=== PATIENT | male | born 1935 | race Caucasian/White ===

== ENCOUNTER 2018-07-08 21:48 | Inpatient (IN) | payer OTHER ==
[2018-07-08 22:22] VITALS: BMI 31.9
[2018-07-08] MEDS ORDERED: ACETAMINOPHEN 1000 MG/100 ML VIAL (NON FORMULARY) IVPB ONE (22:46)
--- NOTE | 2018-07-08 23:02 | PDOC ---
History of Present Illness - General Chief Complaint: Altered Mental Status Stated Complaint: Altered Mental Status Time Seen by Provider: 07/08/18 22:34 History Source: Group Home Records Exam Limitations: Clinical Condition - History of Present Illness Initial Comments: 07/08/18 23:02 The patient is an 83M with a PMH of HTN, HLD, T2DM, dementia, anemia, a-fib (on xarelto and 81mg asa) who presents to the ER from a [facility] for fever and AMS. Per [facility] records, the patient developed a fever earlier today and came more altered than normal. The patient cannot provide any history. Past History - Past Medical History Allergies/Adverse Reactions: Allergies Allergy/AdvReac Type Severity Reaction Status Date / Time No Known Allergies Allergy Verified 07/09/18 01:41 - Suicide/Smoking/Psychosocial Hx Smoking History: Unknown if ever smoked Review of Systems - Review of Systems Able to Perform ROS?: No (demented) *Physical Exam - Vital Signs Last Vital Signs Temp Pulse Resp BP Pulse Ox 101.2 F H 113 H 19 190/112 H 100 07/08/18 21:48 07/08/18 21:48 07/08/18 21:48 07/08/18 21:48 07/08/18 21:48 - Physical Exam Comments: 07/09/18 00:24 GENERAL: Well developed, well nourished. Awake and alert. No acute distress. HEENT: Normocephalic, atraumatic. Hearing grossly normal. Moist mucous membranes. PERRLA, EOMI. No conjunctival pallor. NECK: Supple. Full ROM. No JVD. CARDIOVASCULAR: Regular rate and rhythm. No murmurs, rubs, or gallops. PULMONARY: No evidence of respiratory distress. Lungs clear to auscultation bilaterally. No wheezing, rales or rhonchi. ABDOMINAL: Soft. Non-tender. Non-distended. No rebound or guarding. GENITOURINARY: No CVA tenderness bilaterally. MUSCULOSKELETAL: Normal range of motion at all joints. No bony deformities or tenderness. EXTREMITIES: No cyanosis. No clubbing. No edema. No calf tenderness or swelling. SKIN: Warm and dry. Normal capillary refill. No rashes. No jaundice. NEUROLOGICAL: Alert, awake, appropriate. Cranial nerves 2-12 grossly intact. Normal speech. PSYCHIATRIC: Cooperative. Good eye contact. Appropriate mood and affect. Moderate Sedation - Procedure Monitoring Vital Signs: Procedure Monitoring Vital Signs Temperature 101.2 F H 07/08/18 21:48 Pulse Rate 113 H 07/08/18 21:48 Respiratory Rate 19 07/08/18 21:48 Blood Pressure 190/112 H 07/08/18 21:48 O2 Sat by Pulse Oximetry (%) 100 07/08/18 21:48 Heart Score/ECG Review #1 General ECG Interpretation: Sinus Rhythm, Normal Rate, Normal Intervals, No acute ischemic changes Compared to previous ECG there are: Previous ECG unavail 07/09/18 00:25 Sinus tach vent rate 110 SD 124 QRS 102 QTc 433 No STD or MIGUEL No signs of acute ischemia ED Treatment Course - LABORATORY CBC & Chemistry Diagram: 07/08/18 23:00 07/08/18 23:00 - RADIOLOGY Radiology Studies Ordered: Category Date Time Status HEAD CT WITHOUT CONTRAST [CT] Stat CT Scan 07/08/18 22:35 Ordered CHEST X-RAY PORTABLE* [RAD] Stat Radiology 07/08/18 22:34 Ordered Medical Decision Making - Medical Decision Making 07/08/18 22:58 The patient is an 83M with MMP who presents to the ER with paperwork indicated that he was altered and had a fever. Pt d/w [facility] facility, [facility], who states that the pt had elevated BP with elevated temp (103). He was also tachy 117- 122. He also was altered. Baseline is demented and confused but today, he was barely responsive and had increase in BP. 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 07/09/18 01:06 CBC shows WBC of 14.8. Lactic acid negative. CMP negative. Trop negative. CXR shows possible infiltrate in L lower lobe with widened mediastinum. Pt straight cathed for urine. Will start broad spectrum abx. 07/09/18 02:11 UA negative. Son in law at bedside. Microblogged for admission. 07/09/18 03:05 I have endorsed the patient to Dr. Munoz for admission. *DC/Admit/Observation/Transfer Diagnosis at time of Disposition: Sepsis Qualifiers: Sepsis type: sepsis due to unspecified organism Qualified Code(s): A41.9 - Sepsis, unspecified organism - Discharge Dispostion Condition at time of disposition: Guarded Decision to Admit order: Yes - Referrals Referrals: Stefani Dunne MD [Primary Care Provider] - - Patient Instructions - Post Discharge Activity
[2018-07-08 23:11] LABS: BASO % 0.8 % (0-2.0); EOS % 0.1 % (0-4.5); HEMATOCRIT 43.4 % (35.4-49); LYMPH % 5.3 % (8-40); MCH 31.9 pg (25.7-33.7); MCHC 34.5 g/dl (32.0-35.9); MEAN CELL VOLUME 92.3 fl (80-96); MEAN PLT VOLUME 8.8 fl (7.5-11.1); MONO % 11.6 % (3.8-10.2); NEUT % 82.2 % (42.8-82.8); PLATELET COUNT 250 K/MM3 (134-434); RBC 4.71 M/mm3 (4.00-5.60); RDW 13.5 % (11.9-15.9); WHITE BLOOD COUNT 14.8 K/mm3 (4.0-10.0)
--- NOTE | 2018-07-08 23:15 | PDOC ---
Attending Attestation - HPI HPI: This patient is an 83 year old male with PMHx of Afib on Xarelto, dementia, HTN , DM, who was BIBA from long-term facility, for increased altered mental status, fever, and sore throat. Of note, patient is a poor historian therefore it is difficult to obtain clear history. 07/08/18 23:52 <Mireille Jensen - Last Filed: 07/08/18 23:52> - Resident Resident Name: GilmerAllen carballo - ED Attending Attestation I have performed the following: I have examined & evaluated the patient, The case was reviewed & discussed with the resident, I agree w/resident's findings & plan, Exceptions are as noted - Physicial Exam PE: GENERAL: Awake, alert, oriented to person, in no acute distress HEAD: No signs of trauma EYES: PERRLA, EOMI, sclera anicteric, conjunctiva clear ENT: Auricles normal inspection, hearing grossly normal, nares patent, oropharynx clear without exudates. Dry mucosa NECK: Normal ROM, supple, no lymphadenopathy, JVD, or masses LUNGS: Breath sounds equal, clear to auscultation bilaterally. No wheezes, and no crackles HEART: Regular rate and rhythm, normal S1 and S2, no murmurs, rubs or gallops ABDOMEN: Soft, nontender, normoactive bowel sounds. No guarding, no rebound. No masses EXTREMITIES: Normal range of motion, no edema. No clubbing or cyanosis. No cords, erythema, or tenderness NEUROLOGICAL: Cranial nerves II through XII grossly intact. Normal speech, normal gait. Motor and sensation intact SKIN: Warm, Dry, normal turgor, no rashes. +Healing lesion to the L forearm, no erythema, no open sores. - Medical Decision Making Lengthy discussion with son-in-law at bedside. Pt recently moved to the area from [place] with his , and she was placed into a dementia home. Patient has declined significantly since his arrival. He has been in a rehab facility, but he needs long-term care, as he is unable to care for himself, and family is not able to manage on their own (recently lost multiple family members). He now presents with fever. Will do a sepsis workup and admit. Son-in-law provided a copy of all of his records from recent admission at [facility]. <Eugenie Borja - Last Filed: 07/10/18 01:25> Attestations - Attestations 07/08/18 23:52 Documentation prepared by Mireille Jensen, acting as hospital medical assistant for Eugenie Borja MD. <Mireille Jensen - Last Filed: 07/08/18 23:52>
[2018-07-08 23:23] LABS: INR 1.71 (0.83-1.09); PROTHROMBIN TIME (PATIENT) 20.3 SEC (9.7-13.0)
[2018-07-08 23:39] LABS: ALBUMIN 3.6 g/dl (3.4-5.0); ALK PHOS 97 U/L (45-117); ANION GAP 8 MMOL/L (8-16); BILIRUBIN,TOTAL 0.5 mg/dL (0.2-1); BLOOD UREA NITROGEN 27 mg/dL (7-18); CALCIUM 8.8 mg/dL (8.5-10.1); CHLORIDE 106 mmol/L (98-107); CO2 22 mmol/L (21-32); CREATININE 1.4 mg/dL (0.55-1.3); GLUCOSE,RANDOM 131 mg/dL (74-106); POTASSIUM 4.6 mmol/L (3.5-5.1); SGOT/AST 20 U/L (15-37); SGPT/ALT 15 U/L (13-61); SODIUM 136 mmol/L (136-145); TOT PROT 6.8 g/dl (6.4-8.2)
[2018-07-09 00:21] LABS: VENOUS PC02 34.9 mmHg (38-52); VENOUS PH 7.38 (7.32-7.42); VENOUS PO2 51.5 mmHg (28-48)
[2018-07-09] MEDS ORDERED: VANCOMYCIN 1,000 MG in DEXTROSE 5%-WATER - 250 ML IVPB ONE (01:07)
[2018-07-09] MEDS ORDERED: PIPERACILLIN/TAZOB 4.5 GM 4.5 GM in DEXTROSE 5%-WATER 100 ML IVPB ONE (01:07)
[2018-07-09 01:20] LABS: URINE APPEARANCE SLCLOUDY; URINE BILIRUBIN NEGATIVE (<2.0 mg/dL); URINE COLOR YELLOW; URINE GLUCOSE (UA) NEGATIVE (NEGATIVE); URINE KETONE 1+ (NEGATIVE); URINE LEUK ESTERASE NEGATIVE (NEGATIVE); URINE NITRITE NEGATIVE (NEGATIVE); URINE PROTEIN 2+ (NEGATIVE); URINE UROBILINOGEN NEGATIVE mg/dL (0.2-1.0)
[2018-07-09 01:32] LABS: EPI CELLS RARE /HPF (FEW); URINE MUCUS RARE
[2018-07-09] MEDS ORDERED: PIPERACILLIN/TAZOB 4.5 GM 4.5 GM/100 ML BAG IVPB ONE (01:44)
[2018-07-09] MEDS ORDERED: VANCOMYCIN 1 GRAM (PRE-DOCKED) 1,000 MG/250 ML BAG IVPB ONE ×2 (01:44→01:46)
[2018-07-09] MEDS ORDERED: ACETAMINOPHEN 1000 MG/100 ML VIAL (NON FORMULARY) IVPB ONE (04:33)
--- NOTE | 2018-07-09 04:34 | HP ---
CHIEF COMPLAINT: Per [facility]---> Fever+ AMS PCP: Stefani Dunne MD HISTORY OF PRESENT ILLNESS: Pt is an 83 y/o M from [facility] with a significant past medical history of DM, HLD, Atrial fibrillation, HTN, and Pulmonary Embolism (1 year ago). Pt was recently admitted to [facility] last month 2/2 mechanical fall. Per records from that admission, daughter was unable to reach pt via phone therefore she visited his home and found him on the ground unable to help himself up. Pt was reportedly taken off his Xarelto while he was in rehab in [place] late last year as he was deemed a high fall risk due to his gait disturbance and frequent falls. During [facility] admission, pt underwent ECHO as well as MRI Brain (Please see medical records in pt's physical chart from [facility]). Pt was sent to [facility] due to fever and altered mental status. No reported cough or shortness of breath. ER course was notable for: (1) Vancomycin and Merrem (2) CT Head--->> No acute intracranial hemorrhage or acute infarction. Chronic microvascular ischemic changes noted. Chronic lacunar infarctions. (3)WBC of 14.8 Recent Travel: PAST MEDICAL HISTORY: Per HPI PAST SURGICAL HISTORY: Social History: Smoking: Alcohol: Drugs: Family History: Allergies No Known Allergies Allergy (Verified 07/09/18 01:41) HOME MEDICATIONS: REVIEW OF SYSTEMS CONSTITUTIONAL: UNABLE TO OBTAIN DUE TO PT'S MENTAL STATUS. PHYSICAL EXAMINATION Vital Signs - 24 hr 07/08/18 21:48 Temperature 101.2 F H Pulse Rate 113 H Respiratory 19 Rate Blood Pressure 190/112 H O2 Sat by Pulse 100 Oximetry (%) GENERAL: Somnoloent, Not oriented to place or time HEAD: Atraumatic/Normocephalic EYES: EOMI Sclera Clear EARS, NOSE, THROAT: Dry mucous membranes NECK: No JVD Appreciated. LUNGS: Decreased breath sounds at bases . HEART: RRR nl S1 S2 ABDOMEN: Surgical scar mid abdomen. NDNT NO HSM No guarding or rigidity. . UPPER EXTREMITIES: Bandage Left arm, erythema. LOWER EXTREMITIES: Onychomycosis b/l. No cracks or ulcers on dorsem or plantar aspects of feet b/l. NEUROLOGICAL: dementia SKIN: No skin ulcers appreciated Laboratory Results - last 24 hr 0207/08/18 07/08/18 22:54 23:00 23:00 WBC 14.8 H RBC 4.71 Hgb 15.0 Hct 43.4 MCV 92.3 MCH 31.9 MCHC 34.5 RDW 13.5 Plt Count 250 MPV 8.8 Absolute Neuts (auto) 12.1 H Neutrophils % 82.2 Lymphocytes % 5.3 L Monocytes % 11.6 H Eosinophils % 0.1 Basophils % 0.8 Nucleated RBC % 0 PT with INR 20.30 H INR 1.71 H PTT (Actin FS) 27.0 VBG pH POC VBG pCO2 POC VBG pO2 Mixed VBG HCO3 Sodium Potassium Chloride Carbon Dioxide Anion Gap BUN Creatinine Creat Clearance w eGFR POC Glucometer 131 Random Glucose Lactic Acid Calcium Total Bilirubin AST ALT Alkaline Phosphatase Troponin I Total Protein Albumin Urine Color Urine Appearance Urine pH Ur Specific [place] Urine Protein Urine Glucose (UA) Urine Ketones Urine Blood Urine Nitrite Urine Bilirubin Urine Urobilinogen Ur Leukocyte Esterase Urine WBC (Auto) Urine RBC (Auto) Ur Epithelial Cells Urine Mucus Influenza A (Rapid) Influenza B (Rapid) 07/08/18 07/08/18 07/08/18 23:00 23:00 23:00 WBC RBC Hgb Hct MCV MCH MCHC RDW Plt Count MPV Absolute Neuts (auto) Neutrophils % Lymphocytes % Monocytes % Eosinophils % Basophils % Nucleated RBC % PT with INR INR PTT (Actin FS) VBG pH POC VBG pCO2 POC VBG pO2 Mixed VBG HCO3 Sodium 136 Potassium 4.6 Chloride 106 Carbon Dioxide 22 Anion Gap 8 BUN 27 H Creatinine 1.4 H Creat Clearance w eGFR 48.52 POC Glucometer Random Glucose 131 H Lactic Acid 1.0 Calcium 8.8 Total Bilirubin 0.5 AST 20 ALT 15 Alkaline Phosphatase 97 Troponin I < 0.02 Total Protein 6.8 Albumin 3.6 Urine Color Urine Appearance Urine pH Ur Specific [place] Urine Protein Urine Glucose (UA) Urine Ketones Urine Blood Urine Nitrite Urine Bilirubin Urine Urobilinogen Ur Leukocyte Esterase Urine WBC (Auto) Urine RBC (Auto) Ur Epithelial Cells Urine Mucus Influenza A (Rapid) Influenza B (Rapid) 07/08/18 07/09/18 07/09/18 23:00 00:09 01:00 WBC RBC Hgb Hct MCV MCH MCHC RDW Plt Count MPV Absolute Neuts (auto) Neutrophils % Lymphocytes % Monocytes % Eosinophils % Basophils % Nucleated RBC % PT with INR INR PTT (Actin FS) VBG pH 7.38 POC VBG pCO2 34.9 L POC VBG pO2 51.5 H Mixed VBG HCO3 20.3 Sodium Potassium Chloride Carbon Dioxide Anion Gap BUN Creatinine Creat Clearance w eGFR POC Glucometer Random Glucose Lactic Acid Calcium Total Bilirubin AST ALT Alkaline Phosphatase Troponin I Total Protein Albumin Urine Color Yellow Urine Appearance Slcloudy Urine pH 5.0 Ur Specific [place] 1.018 Urine Protein 2+ H Urine Glucose (UA) Negative Urine Ketones 1+ H Urine Blood 3+ H Urine Nitrite Negative Urine Bilirubin Negative Urine Urobilinogen Negative Ur Leukocyte Esterase Negative Urine WBC (Auto) None Urine RBC (Auto) 664 Ur Epithelial Cells Rare Urine Mucus Rare Influenza A (Rapid) Negative Influenza B (Rapid) Negative ASSESSMENT/PLAN: Pt is an 83 y/o M from [facility] with a significant past medical history of DM, Atrial fibrillation, HTN, and Pulmonary Embolism (1 year ago) who presents to [facility] from [facility] due to altered mental status and fever. # Fever 2/2 Pneumonia? WBC 14.8. Repeat CBC in am Procalcitonin to asses for chest infection/respiratory disease as is an acute phase reactant that will aid in determining presence of disease - Chest CT w/o Contrast to assess for possible infiltrate. Chest XRAY poor quality -ESR -500 mg PO Azithro to cover Atypicals -Resume Vanc and Merrem -Nasal swab for viruses -Urine legionella/Strep -Sputum Cultures -Blood/Urine Cultures #DM Will start ISS ACHS Will not hold Metformin #Atrial Fibrillation Xarelto on hold. Day team to reach out to [facility] and confirm whether or not [facility]. Toprol XL 25 MG PO Daily Aspirin 81 Daily #HTN Cozaar 50 MG Daily # HLD Lipitor 20 MG Daily # Anemia Ferrous Sulfate 325 mg tab daily #FEN NS@75 cc Monitor Electrolytes NPO Dispo: Full Code Visit type - Emergency Visit Emergency Visit: Yes ED Registration Date: 07/09/18 Care time: The patient presented to the Emergency Department on the above date and was hospitalized for further evaluation of their emergent condition. - New Patient This patient is new to me today: Yes Date on this admission: 07/09/18 - Critical Care Critical Care patient: No
--- NOTE | 2018-07-09 06:28 | PN ---
Teaching Attending Note Name of Resident: Dom Munoz ATTENDING PHYSICIAN STATEMENT I saw and evaluated the patient. Chart, data, imaging reviewed. I reviewed the resident's note and discussed the case with the resident. I agree with the resident's findings and plan as documented. SUBJECTIVE: 83 y/o M from [facility] with a significant past medical history of DM, Atrial fibrillation, HTN, and Pulmonary Embolism (1 year ago) brought in to hospital for fever with Tmax of 103F in ER, and altered mental status for about one day. Patient provides no history so must rely on EMR. No reported cough or shortness of breath. Negative flu swab in ER. Patient reviewed vancomycin and zosyn in ER empirically. OBJECTIVE: Last Vital Signs Temp Pulse Resp BP Pulse Ox 103.0 F H 88 19 157/91 97 07/09/18 03:57 07/09/18 03:57 07/09/18 03:57 07/09/18 03:57 07/09/18 05:11 general- elderly, frail heent- atraumatic, perrla cv s1+, s2+ chest - cta anteriorly abdomen- soft, nt skin - intact Abnormal Lab Results 07/08/18 07/08/18 07/08/18 23:00 23:00 23:00 WBC 14.8 H Absolute Neuts (auto) 12.1 H Lymphocytes % 5.3 L Monocytes % 11.6 H PT with INR 20.30 H INR 1.71 H POC VBG pCO2 POC VBG pO2 BUN 27 H Creatinine 1.4 H Random Glucose 131 H Urine Protein Urine Ketones Urine Blood 07/09/18 07/09/18 00:09 01:00 WBC Absolute Neuts (auto) Lymphocytes % Monocytes % PT with INR INR POC VBG pCO2 34.9 L POC VBG pO2 51.5 H BUN Creatinine Random Glucose Urine Protein 2+ H Urine Ketones 1+ H Urine Blood 3+ H CXR - poor quality, rotated, poor inspiration head ct negative for acute insults ekg reviewed ASSESSMENT AND PLAN: #83yo man with SIRS, leukocytosis, likely sepsis however uncertain source. Skin appears to be intact. Possibly pneumonia? Unclear from CXR. -admit to med/surg -ID consult -esr -procalcitonin -zosyn -vancomycin -azithromycin 500mg IV -IV fluid hydration -chest CT to evaluate for infiltrate -blood cultures x2 -urine legionella ag -respiratory multiplex PCR -tylenol prn for fever -heparin sc for dvt ppx #SHELBI vs ckd -iv fluid hydration -avoid nephrotoxins
[2018-07-09] MEDS ORDERED: AZITHROMYCIN IVPB 500 MG in DEXTROSE 5%-WATER - 250 ML IVPB ONE (06:50)
[2018-07-09 08:32] LABS: BASO % 0.7 % (0-2.0); EOS % 0.2 % (0-4.5); HEMATOCRIT 37.8 % (35.4-49); HEMOGLOBIN 13.1 GM/dL (11.7-16.9); LYMPH % 5.6 % (8-40); MCH 31.3 pg (25.7-33.7); MCHC 34.6 g/dl (32.0-35.9); MEAN CELL VOLUME 90.7 fl (80-96); MEAN PLT VOLUME 8.4 fl (7.5-11.1); MONO % 12.4 % (3.8-10.2); NEUT % 81.1 % (42.8-82.8); PLATELET COUNT 235 K/MM3 (134-434); RBC 4.17 M/mm3 (4.00-5.60); RDW 13.7 % (11.9-15.9); WHITE BLOOD COUNT 13.3 K/mm3 (4.0-10.0)
[2018-07-09 08:38] LABS: INR 1.4 (0.83-1.09); PROTHROMBIN TIME (PATIENT) 16.6 SEC (9.7-13.0)
[2018-07-09 08:41] LABS: ACTIVATED PTT 29.6 SECONDS (25.2-36.5)
[2018-07-09 09:00] LABS: ALBUMIN 3.4 g/dl (3.4-5.0); ALK PHOS 90 U/L (45-117); ANION GAP 8 MMOL/L (8-16); BILIRUBIN,TOTAL 0.6 mg/dL (0.2-1); BLOOD UREA NITROGEN 25 mg/dL (7-18); CALCIUM 8.8 mg/dL (8.5-10.1); CHLORIDE 106 mmol/L (98-107); CO2 20 mmol/L (21-32); CREATININE 1.4 mg/dL (0.55-1.3); GLUCOSE,RANDOM 129 mg/dL (74-106); PHOSPHOROUS 4.2 mg/dL (2.5-4.9); POTASSIUM 4.2 mmol/L (3.5-5.1); SGOT/AST 11 U/L (15-37); SGPT/ALT 14 U/L (13-61); SODIUM 133 mmol/L (136-145); TOT PROT 6.2 g/dl (6.4-8.2)
[2018-07-09] MEDS ORDERED: ACETAMINOPHEN 325 MG TABLET (FP) PO PRN (09:00)
--- NOTE | 2018-07-09 09:07 | PN ---
Progress Note, Physician Chief Complaint: SEPSIS AMS History of Present Illness: NAD lethargic - Current Medication List Current Medications: Active Medications Acetaminophen (Tylenol -) 650 mg PO Q4H PRN PRN Reason: PAIN OR FEVER Aspirin (Asa -) 81 mg PO DAILY [facility] Atorvastatin Calcium (Lipitor -) 20 mg PO HS [facility] Cyanocobalamin (Vitamin B12 -) 1,000 mcg PO DAILY [facility] Docusate Sodium (Colace -) 100 mg PO DAILY [facility] Sodium Chloride (Normal Saline -) 1,000 mls @ 75 mls/hr IV ASDIR [facility] Vancomycin HCl (Vancomycin (Pre-Docked)) 1,000 mg in 250 mls @ 166.667 mls/hr IVPB ONCE ONE; Protocol Stop: 07/10/18 02:29 Piperacillin Sod/Tazobactam (Sod 4.5 gm/ Dextrose) 100 mls @ 200 mls/hr IVPB ONCE ONE; Protocol Stop: 07/10/18 01:29 Insulin Aspart (Novolog Vial Sliding Scale -) 1 vial SQ ACHS [facility]; Protocol Losartan Potassium (Cozaar -) 50 mg PO DAILY [facility] Metoprolol Succinate (Toprol Xl -) 25 mg PO DAILY [facility] - Objective Vital Signs: Vital Signs Temperature 103.0 F H 07/09/18 03:57 Pulse Rate 88 07/09/18 03:57 Respiratory Rate 19 07/09/18 03:57 Blood Pressure 157/91 07/09/18 03:57 O2 Sat by Pulse Oximetry (%) 97 07/09/18 05:11 Constitutional: Yes: Well Nourished, No Distress, Calm Cardiovascular: Yes: Regular Rate and Rhythm Respiratory: Yes: Regular Gastrointestinal: Yes: Normal Bowel Sounds, Soft Genitourinary: Yes: Incontinence Musculoskeletal: Yes: Muscle Weakness Extremities: Yes: Other (generalized atrophy) Edema: No Peripheral Pulses WNL: Yes Neurological: Yes: Alert, Pre-Existing Deficit Psychiatric: Yes: Alert Labs: CBC, BMP 07/09/18 08:03 07/09/18 08:03 INR, PTT INR 1.40 (0.83-1.09) H 07/09/18 08:03 Problem List - Problems (1) Altered mental status Assessment/Plan: -CT head results pending -2/2 to metabolic encephalopathy Code(s): R41.82 - ALTERED MENTAL STATUS, UNSPECIFIED (2) Sepsis Assessment/Plan: -Cultures pending -ID consult -Acetaminophen 650 mg po Q6HPRN for fever >100.0F -IV abx-Vanco+ Zosyn -CXR unremarkable -lactic acid normal Code(s): A41.9 - SEPSIS, UNSPECIFIED ORGANISM Qualifiers: Sepsis type: sepsis due to unspecified organism Qualified Code(s): A41.9 - Sepsis, unspecified organism (3) Diabetes Assessment/Plan: -recheck A1c -BGM AC HS -Diabetic low sodium dysphagia chopped diet -Insulin novolog -Hold metformin during hospital stay Code(s): E11.9 - TYPE 2 DIABETES MELLITUS WITHOUT COMPLICATIONS (4) SHELBI (acute kidney injury) Assessment/Plan: -nephrology consult -gentle IVF -monitor trend -urine culture pending -U/S renal Code(s): N17.9 - ACUTE KIDNEY FAILURE, UNSPECIFIED (5) Recurrent falls Assessment/Plan: -Physical therapy -safety precautions -Check B12 Code(s): R29.6 - REPEATED FALLS Assessment/Plan See problem list Physical therapy
[2018-07-09] MEDS ORDERED: PT OWN MED DRAWER 7, Y5N ONE (09:34)
[2018-07-09] MEDS ORDERED: DEXTROSE 5%-WATER 100 ML IVPB ONE (09:35)
[2018-07-09] MEDS ORDERED: PIPERACILLIN/TAZOBACTAM 4.5 GM VIAL IVPB ONE (09:35)
[2018-07-09] MEDS: ASPIRIN 81 MG CHEWABLE TABLETS PO SCH (09:43)
[2018-07-09] MEDS: DOCUSATE SODIUM 100 MG CAPSULE (FP) PO SCH (09:43)
[2018-07-09] MEDS: CYANOCOBALAMIN 1,000 MCG TABLET (FP) PO SCH (09:43)
[2018-07-09] MEDS: LOSARTAN POTASSIUM 50 MG TABLET (FP) PO SCH (09:43)
[2018-07-09] MEDS: metoPROLOL SUCCINATE 25 MG TAB.SR.24H (FP) PO SCH (09:45)
[2018-07-09] MEDS: SODIUM CHLORIDE 1,000 ML IV SCH (09:46)
[2018-07-09] MEDS: INSULIN SLIDING SCALE (NOVOLOG) 1 VIAL SQ SCH ×4 (09:46→21:03)
[2018-07-09] MEDS ORDERED: PIPERACILLIN/TAZOB 4.5 GM 4.5 GM in DEXTROSE 5%-WATER 100 ML IVPB SCH (10:00)
[2018-07-09] MEDS ORDERED: ASPIRIN 81 MG CHEWABLE TABLETS PO SCH (10:00)
--- NOTE | 2018-07-09 13:26 | PN ---
Progress Note (short form) - Note Progress Note: ID CONSULT DICTATED FEVER/ LEUKOCYTOSIS ? SOURCE TOXIC METABOLIC ENCEPHALOPATHY HX COGNITIVE DECLINE/ HX B/L CVA AZOTEMIA ? HX MRSA COLONIZATION PENDING SEPSIS W/U EMPIRIC ZOSYN/ VANCOMYCIN
[2018-07-09] MEDS ORDERED: PIPERACILLIN/TAZOBACTAM 3.375 GM VIAL IVPB ONE ×2 (14:10→17:35)
[2018-07-09] MEDS ORDERED: DEXTROSE 5%-WATER - 50 ML IVPB ONE ×2 (14:10→17:35)
[2018-07-09] MEDS: VANCOMYCIN 1 GRAM (PRE-DOCKED) 1,000 MG/250 ML BAG IVPB SCH (14:15)
[2018-07-09] MEDS: PIPERACILLIN/TAZOB 3.375 GM 3.375 GM in DEXTROSE 5%-WATER - 50 ML IVPB SCH ×2 (14:15→17:58)
--- NOTE | 2018-07-09 14:46 | CONS ---
DATE OF CONSULTATION: 07/09/2018 The patient is seen for evaluation of fever. History was obtained from the chart as well as the patient's son-in-law, who was present at the time of examination and records from [facility]. He is an 83-year-old male who is evaluated for fever and altered mental status. According to the son, he has had a cognitive decline over the past several months. He was living in [place] and had been driving. He was admitted to a rehabilitation center in [place] in April 2018 after recurrent falls. Patient relocated to [place], where he was hospitalized at [facility] on June 15, 2018, after falling. An MRI showed bilateral cerebral infarcts. He has been residing in a senior living facility for the past 3 weeks or so. Over the past 24 hours, he developed high-grade fever to 103, associated with tachycardia and worsening mental status. He was transferred to the emergency room, where he was noted to have temperature 101.2. CAT scan of the head was negative for acute infarct or bleeding. Cultures were obtained. He was empirically treated with antibiotics. An influenza swab was negative. At the present time, he is awake, but lethargic. He is able to answer simple yes or no questions. He denies any pain. Denies any shortness of breath or cough. He was noted to have a cough on exam. He denies any recent dysuria, hematuria. No reports of vomiting or diarrhea. No reported infected decubitus ulcers. Past medical history positive for diabetes, hypertension, hyperlipidemia, atrial fibrillation, pulmonary embolism, report of autoimmune disease (exact nature of this is not known), MRI evidence of bilateral cerebral infarcts on recent [facility] admission. No known allergies. Medications at the present time include Tylenol, aspirin, Lipitor, Cozaar, Toprol, vancomycin, Zosyn, Zithromax. SOCIAL HISTORY: As per HPI. No active tobacco or alcohol use. Recently relocated from [place]. SYSTEMS REVIEW: Neurologic: As per HPI. Cardiac: Negative chest pain or palpitations. Respiratory: Positive for cough. No respiratory distress. Gastrointestinal: Negative vomiting or diarrhea. Genitourinary: Negative for urinary tract infection. LABORATORY DATA: White count on admission 14.8, 81 neutrophils, 5 lymphocytes, 12 monocytes. Hematocrit 37.8, platelet count 235. BUN 25, creatinine 1.4. Flu swab negative. Urinalysis: No white cells, 664 red cells. Blood and urine cultures are pending. PHYSICAL EXAMINATION: General: He is awake but lethargic. He is arousable. Breathing is nonlabored. Vital Signs: T-max 103. Blood pressure 157/91. Pulse 88, regular. Respirations 19 per minute. ENT: Sclerae anicteric. Dry mucous membranes. Heart Sounds: S1, S2. Lungs: Diminished breath sounds bilaterally. Poor inspiratory effort. Abdomen: Soft. No tenderness elicited. No mass, rebound or rigidity. Extremities: Negative for edema. There is a soft tissue swelling present in the left forearm, slight erythema. No fluctuance or expressible pus. IMPRESSION: 1. Fever, leukocytosis, unclear source. 2. Toxic metabolic encephalopathy. 3. History of cognitive decline/bilateral strokes. 4. Azotemia. 5. Questionable history of methicillin-resistant Staphylococcus aureus colonization. Await sepsis, empiric antibiotic coverage with Zosyn and vancomycin. Case discussed with patient and son-in-law present at the time of the examination. Thank you for the kind referral. SUZAN PHILIPPE M.D. [id number]
--- NOTE | 2018-07-09 20:22 | CON.NEP ---
Consult Consult Specialty:: Nephrology Referred by:: azael romero Reason for Consultation:: azotemia - History of Present Illness Chief Complaint: fever and altered mental status History of Present Illness: 83 y/o M from [facility] transfer for fever (T103F) and altered mental status x 1 day s/p vancomycin and zosyn in ER labs show leukocytosis consult for azotemia s creat 1.5 and 1.4 here no previous labs to compare past medical history of DM, Atrial fibrillation, HTN, and Pulmonary Embolism (1 year ago) - History Source History Provided By: Medical Record Limitations to Obtaining History: Clinical Condition - Alcohol/Substance Use Hx Alcohol Use: No - Smoking History Smoking history: Unknown if ever smoked Home Medications - Allergies Allergies/Adverse Reactions: Allergies Allergy/AdvReac Type Severity Reaction Status Date / Time No Known Allergies Allergy Verified 07/09/18 01:41 - Home Medications Home Medications: Ambulatory Orders Aspirin [ASA -] 81 mg PO DAILY 07/09/18 Atorvastatin Ca [Lipitor] 20 mg PO HS 07/09/18 Cyanocobalamin (Vitamin B-12) [Vitamin B-12] 1,000 mcg PO DAILY 07/09/18 Docusate Sodium [Colace] 100 mg PO DAILY 07/09/18 Ferrous Sulfate [Iron] 325 mg PO DAILY 07/09/18 Guaifenesin [Robitussin -] 100 mg PO Q4H PRN 07/09/18 Losartan Potassium [Cozaar -] 50 mg PO DAILY 07/09/18 Metformin HCl [Metformin HCl ER] 500 mg PO DAILY 07/09/18 Metoprolol Succinate [Toprol Xl] 25 mg PO DAILY 07/09/18 Rivaroxaban [Xarelto -] 20 mg PO DAILY 07/09/18 Nephrology Consult - Height Height: 5 ft 8 in - Weight Weight: 210 lb - BMI Body Mass Index (BMI): 31.9 - Lab Results CBC,BMP: CBC, BMP 07/09/18 08:03 07/09/18 08:03 Anion Gap: Anion Gap Anion Gap 8 MMOL/L (8-16) 07/09/18 08:03 - Physical Examination Vital Signs: Vital Signs Temperature 100.2 F H 07/09/18 16:30 Pulse Rate 93 H 07/09/18 16:30 Respiratory Rate 18 07/09/18 16:30 Blood Pressure 134/89 07/09/18 16:30 O2 Sat by Pulse Oximetry (%) 97 07/09/18 05:11 Assessment/Plan azotemia unknwn baseline renal function febrile illness being worked up started on empirical abx Plan- monitor labs for renal function monitor urine output adjust meds for renal function
[2018-07-09] MEDS ORDERED: INSULIN (NOVOLOG) ASPART 100 UNITS/ML 10ML VIAL ONE (20:50)
[2018-07-09] MEDS: ATORVASTATIN CA 20 MG TABLET (FP) PO SCH (21:03)
[2018-07-09] MEDS ORDERED: ATORVASTATIN CA 20 MG TABLET (FP) PO SCH (22:00)
--- NOTE | 2018-07-09 22:08 | EKG ---
Test Reason : Blood Pressure : / mmHG Vent. Rate : 106 BPM Atrial Rate : 106 BPM P-R Int : 124 ms QRS Dur : 102 ms QT Int : 326 ms P-R-T Axes : 015 -36 045 degrees QTc Int : 433 ms SINUS TACHYCARDIA LEFT AXIS DEVIATION NONSPECIFIC ST AND T WAVE ABNORMALITY ABNORMAL ECG NO PREVIOUS ECGS AVAILABLE Confirmed by MANN CARTER MD ([id number]) on 07/09/2018 10:08:16 PM Referred By: Confirmed By:MANN CARTER MD
[2018-07-10] MEDS ORDERED: VANCOMYCIN 1 GRAM (PRE-DOCKED) 1,000 MG/250 ML BAG IVPB ONE (01:00)
[2018-07-10] MEDS ORDERED: PIPERACILLIN/TAZOB 4.5 GM 4.5 GM in DEXTROSE 5%-WATER 100 ML IVPB ONE (01:00)
[2018-07-10] MEDS ORDERED: PIPERACILLIN/TAZOBACTAM 3.375 GM VIAL IVPB ONE ×3 (02:06→17:08)
[2018-07-10] MEDS ORDERED: DEXTROSE 5%-WATER - 50 ML IVPB ONE ×3 (02:06→17:08)
[2018-07-10] MEDS: PIPERACILLIN/TAZOB 3.375 GM 3.375 GM in DEXTROSE 5%-WATER - 50 ML IVPB SCH ×3 (02:23→17:23)
[2018-07-10] MEDS: SODIUM CHLORIDE 1,000 ML IV SCH ×2 (02:24→14:05)
[2018-07-10 06:20] LABS: BASO % 0.6 % (0-2.0); EOS % 1.7 % (0-4.5); HEMATOCRIT 34.2 % (35.4-49); HEMOGLOBIN 11.9 GM/dL (11.7-16.9); LYMPH % 7.6 % (8-40); MCH 31.9 pg (25.7-33.7); MCHC 34.9 g/dl (32.0-35.9); MEAN CELL VOLUME 91.5 fl (80-96); MEAN PLT VOLUME 8.4 fl (7.5-11.1); MONO % 17.4 % (3.8-10.2); NEUT % 72.7 % (42.8-82.8); PLATELET COUNT 198 K/MM3 (134-434); RBC 3.74 M/mm3 (4.00-5.60); RDW 13.8 % (11.9-15.9); WHITE BLOOD COUNT 9.8 K/mm3 (4.0-10.0)
[2018-07-10] MEDS: INSULIN SLIDING SCALE (NOVOLOG) 1 VIAL SQ SCH ×4 (06:27→21:23)
[2018-07-10 06:45] LABS: ALBUMIN 2.8 g/dl (3.4-5.0); ALK PHOS 76 U/L (45-117); ANION GAP 7 MMOL/L (8-16); BILIRUBIN,TOTAL 0.5 mg/dL (0.2-1); BLOOD UREA NITROGEN 25 mg/dL (7-18); CALCIUM 8.2 mg/dL (8.5-10.1); CHLORIDE 107 mmol/L (98-107); CO2 23 mmol/L (21-32); CREATININE 1.6 mg/dL (0.55-1.3); GLUCOSE,RANDOM 121 mg/dL (74-106); POTASSIUM 4.1 mmol/L (3.5-5.1); SGOT/AST 10 U/L (15-37); SGPT/ALT 14 U/L (13-61); SODIUM 137 mmol/L (136-145); TOT PROT 5.5 g/dl (6.4-8.2)
[2018-07-10] MEDS ORDERED: PT OWN MED DRAWER 7, Y5N ONE (09:59)
[2018-07-10] MEDS ORDERED: PIPERACILLIN/TAZOB 4.5 GM 4.5 GM in DEXTROSE 5%-WATER 100 ML IVPB SCH (10:00)
[2018-07-10] MEDS: ASPIRIN 81 MG CHEWABLE TABLETS PO SCH (10:09)
[2018-07-10] MEDS: DOCUSATE SODIUM 100 MG CAPSULE (FP) PO SCH (10:09)
[2018-07-10] MEDS: LOSARTAN POTASSIUM 50 MG TABLET (FP) PO SCH (10:09)
[2018-07-10] MEDS: metoPROLOL SUCCINATE 25 MG TAB.SR.24H (FP) PO SCH (10:09)
[2018-07-10] MEDS: CYANOCOBALAMIN 1,000 MCG TABLET (FP) PO SCH (10:09)
--- NOTE | 2018-07-10 11:26 | PN ---
Progress Note (short form) - Note Progress Note: Renal follow up for SHELBI Pt seen and examined at the bedside sleeping no overnight events was febrile last night making urine daughter at the bedside Vital Signs Temperature 98.6 F 07/10/18 01:00 Pulse Rate 92 H 07/10/18 01:00 Respiratory Rate 20 07/10/18 01:00 Blood Pressure 112/74 07/10/18 01:00 O2 Sat by Pulse Oximetry (%) 97 07/09/18 05:11 Intake & Output 07/07/18 07/08/18 07/09/18 07/10/18 23:59 23:59 23:59 23:59 Intake Total 1400 1000 Output Total 100 Balance 1300 1000 Weight 95.254 kg 95.254 kg NAD No LE edema no bladder distension CBC, BMP 07/10/18 05:50 07/10/18 05:50 Current Medications Acetaminophen (Tylenol -) 650 mg PO Q4H PRN PRN Reason: PAIN OR FEVER Aspirin (Asa -) 81 mg PO DAILY [facility] Last Admin: 07/10/18 10:09 Dose: 81 mg Atorvastatin Calcium (Lipitor -) 20 mg PO HS [facility] Last Admin: 07/09/18 21:03 Dose: 20 mg Cyanocobalamin (Vitamin B12 -) 1,000 mcg PO DAILY [facility] Last Admin: 07/10/18 10:09 Dose: 1,000 mcg Docusate Sodium (Colace -) 100 mg PO DAILY [facility] Last Admin: 07/10/18 10:09 Dose: 100 mg Sodium Chloride (Normal Saline -) 1,000 mls @ 75 mls/hr IV ASDIR [facility] Last Admin: 07/10/18 02:24 Dose: 75 mls/hr Piperacillin Sod/Tazobactam (Sod 3.375 gm/ Dextrose) 50 mls @ 100 mls/hr IVPB Q8H-IV [facility]; Protocol Last Admin: 07/10/18 10:08 Dose: 100 mls/hr Vancomycin HCl (Vancomycin (Pre-Docked)) 1,000 mg in 250 mls @ 200 mls/hr IVPB Q24H [facility]; Protocol Last Admin: 07/09/18 14:15 Dose: 200 mls/hr Insulin Aspart (Novolog Vial Sliding Scale -) 1 vial SQ ACHS [facility]; Protocol Last Admin: 07/10/18 06:27 Dose: Not Given Losartan Potassium (Cozaar -) 50 mg PO DAILY [facility] Last Admin: 07/10/18 10:09 Dose: 50 mg Metoprolol Succinate (Toprol Xl -) 25 mg PO DAILY [facility] Last Admin: 07/10/18 10:09 Dose: 25 mg 83 year old gentleman with hx of DM, HLD, Afib not on A/C, HTN, PE who presented with fever from Rehab and found to have Cr of 1.4-1.6. #SHELBI vs. CKD #Fever #Hypertension #Afib not on A/C #Hx of PE Baseline Cr 1.1 as per [facility] records Continue gentle IVF hydration hold ARB for now given Cr slowly uptrending continue empiric abx for fever/cystitis Trend renal function and electrolytes no indication for [employer] Neurology consult Kishor Beltre DO
--- NOTE | 2018-07-10 12:25 | PN ---
Progress Note, Physician Chief Complaint: Sepsis AMS History of Present Illness: Previous notes and events reviewed awake and alert but confused NAD UC positive WBC 9.8 - Current Medication List Current Medications: Active Medications Acetaminophen (Tylenol -) 650 mg PO Q4H PRN PRN Reason: PAIN OR FEVER Aspirin (Asa -) 81 mg PO DAILY [facility] Last Admin: 07/10/18 10:09 Dose: 81 mg Atorvastatin Calcium (Lipitor -) 20 mg PO HS [facility] Last Admin: 07/09/18 21:03 Dose: 20 mg Cyanocobalamin (Vitamin B12 -) 1,000 mcg PO DAILY [facility] Last Admin: 07/10/18 10:09 Dose: 1,000 mcg Docusate Sodium (Colace -) 100 mg PO DAILY [facility] Last Admin: 07/10/18 10:09 Dose: 100 mg Sodium Chloride (Normal Saline -) 1,000 mls @ 75 mls/hr IV ASDIR [facility] Last Admin: 07/10/18 02:24 Dose: 75 mls/hr Piperacillin Sod/Tazobactam (Sod 3.375 gm/ Dextrose) 50 mls @ 100 mls/hr IVPB Q8H-IV [facility]; Protocol Last Admin: 07/10/18 10:08 Dose: 100 mls/hr Vancomycin HCl (Vancomycin (Pre-Docked)) 1,000 mg in 250 mls @ 200 mls/hr IVPB Q24H [facility]; Protocol Last Admin: 07/09/18 14:15 Dose: 200 mls/hr Insulin Aspart (Novolog Vial Sliding Scale -) 1 vial SQ ACHS [facility]; Protocol Last Admin: 07/10/18 11:40 Dose: Not Given Losartan Potassium (Cozaar -) 50 mg PO DAILY [facility] Last Admin: 07/10/18 10:09 Dose: 50 mg Metoprolol Succinate (Toprol Xl -) 25 mg PO DAILY [facility] Last Admin: 07/10/18 10:09 Dose: 25 mg - Objective Vital Signs: Vital Signs Temperature 98.6 F 07/10/18 01:00 Pulse Rate 92 H 07/10/18 01:00 Respiratory Rate 20 07/10/18 01:00 Blood Pressure 112/74 07/10/18 01:00 O2 Sat by Pulse Oximetry (%) 97 07/09/18 05:11 Constitutional: Yes: Well Nourished, No Distress, Calm Eyes: Yes: Conjunctiva Clear HENT: Yes: Atraumatic Cardiovascular: Yes: Regular Rate and Rhythm Respiratory: Yes: Regular, CTA Bilaterally Gastrointestinal: Yes: Normal Bowel Sounds, Soft Genitourinary: Yes: Incontinence Musculoskeletal: Yes: Muscle Weakness Extremities: Yes: WNL Edema: No Neurological: Yes: Alert, Confusion Psychiatric: Yes: Alert Labs: CBC, BMP 07/10/18 05:50 07/10/18 05:50 INR, PTT INR 1.40 (0.83-1.09) H 07/09/18 08:03 Microbiology 07/09/18 01:00 Urine - Urine - Catheterized Urine Culture - Preliminary Group D Strep Or Entero Coccus 07/08/18 23:00 Blood - Peripheral Venous Blood Culture - Preliminary NO GROWTH OBTAINED AFTER 24 HOURS, INCUBATION TO CONTINUE FOR 4 DAYS. 07/08/18 23:00 Blood - Peripheral Venous Blood Culture - Preliminary NO GROWTH OBTAINED AFTER 24 HOURS, INCUBATION TO CONTINUE FOR 4 DAYS. <Jo-Ann Canales - Last Filed: 07/10/18 12:26> - Current Medication List Current Medications: Active Medications Acetaminophen (Tylenol -) 650 mg PO Q4H PRN PRN Reason: PAIN OR FEVER Aspirin (Asa -) 81 mg PO DAILY [facility] Last Admin: 07/11/18 10:52 Dose: 81 mg Atorvastatin Calcium (Lipitor -) 20 mg PO HS [facility] Last Admin: 07/10/18 21:23 Dose: 20 mg Cyanocobalamin (Vitamin B12 -) 1,000 mcg PO DAILY [facility] Last Admin: 07/11/18 10:52 Dose: 1,000 mcg Docusate Sodium (Colace -) 100 mg PO DAILY [facility] Last Admin: 07/11/18 10:52 Dose: 100 mg Piperacillin Sod/Tazobactam (Sod 3.375 gm/ Dextrose) 50 mls @ 100 mls/hr IVPB Q8H-IV [facility]; Protocol Last Admin: 07/11/18 10:50 Dose: 100 mls/hr Vancomycin HCl (Vancomycin (Pre-Docked)) 1,000 mg in 250 mls @ 200 mls/hr IVPB Q24H [facility]; Protocol Last Admin: 07/11/18 14:17 Dose: 200 mls/hr Sodium Chloride (Normal Saline -) 1,000 mls @ 50 mls/hr IV ASDIR [facility] Insulin Aspart (Novolog Vial Sliding Scale -) 1 vial SQ [facility]; Protocol Last Admin: 07/11/18 12:39 Dose: Not Given Metoprolol Succinate (Toprol Xl -) 25 mg PO DAILY [facility] Last Admin: 07/11/18 10:54 Dose: 25 mg - Objective Vital Signs: Vital Signs Temperature 98.7 F 07/11/18 14:27 Pulse Rate 66 07/11/18 14:27 Respiratory Rate 18 07/11/18 14:27 Blood Pressure 131/82 07/11/18 14:27 O2 Sat by Pulse Oximetry (%) 97 07/10/18 21:00 Labs: CBC, BMP 07/11/18 06:30 07/11/18 06:30 INR, PTT INR 1.40 (0.83-1.09) H 07/09/18 08:03 <Lee Martinez - Last Filed: 07/11/18 15:52> Problem List - Problems (1) SHELBI (acute kidney injury) Assessment/Plan: -renal on board -continue with IVF -current BUN/Cr 25/1.6, will continue to monitor -Renal US: bilateral renal cysts, possible nonobstructing calculus right kidney Code(s): N17.9 - ACUTE KIDNEY FAILURE, UNSPECIFIED (2) Altered mental status Assessment/Plan: -neurology consult placed -Head CT: no acute bleed or mass or fracture, no CT evidence of acute infarct Code(s): R41.82 - ALTERED MENTAL STATUS, UNSPECIFIED (3) Diabetes Assessment/Plan: -HgA1c 6.9% -BGM [facility] -[facility] -diabetic diet Code(s): E11.9 - TYPE 2 DIABETES MELLITUS WITHOUT COMPLICATIONS (4) Recurrent falls Assessment/Plan: -PT eval -fall precaution Code(s): R29.6 - REPEATED FALLS (5) Sepsis Assessment/Plan: -ID on board -continue with vanco and zosyn -tylenol 65omg PO prn for temp >100F -UC positive for group D strep or enterococcus -BC neg -LA 1.0 Code(s): A41.9 - SEPSIS, UNSPECIFIED ORGANISM Qualifiers: Sepsis type: sepsis due to unspecified organism Qualified Code(s): A41.9 - Sepsis, unspecified organism <JoA-nn Canales - Last Filed: 07/10/18 12:26> Assessment/Plan see problem list dvt ppx <Jo-Ann Canales - Last Filed: 07/10/18 12:26> I AGREE WITH THE ABOVE NOTE <Lee Martinez - Last Filed: 07/11/18 15:52>
[2018-07-10] MEDS ORDERED: VANCOMYCIN 1,000 MG in DEXTROSE 5%-WATER - 250 ML IVPB ONE (12:55)
--- NOTE | 2018-07-10 12:55 | PN ---
Progress Note, Physician History of Present Illness: LETHARGIC BUT ABLE TO ANSWER SIMPLE YES/NO QUESTIONS DENIES PAIN DENIES DYSURIA LOW GRADE TEMPS WBC IMPROVED NOW WNL BC (-) URINE C/S ENTEROCOCCUS ? CONTAMINANT - Current Medication List Current Medications: Active Medications Acetaminophen (Tylenol -) 650 mg PO Q4H PRN PRN Reason: PAIN OR FEVER Aspirin (Asa -) 81 mg PO DAILY [facility] Last Admin: 07/10/18 10:09 Dose: 81 mg Atorvastatin Calcium (Lipitor -) 20 mg PO HS [facility] Last Admin: 07/09/18 21:03 Dose: 20 mg Cyanocobalamin (Vitamin B12 -) 1,000 mcg PO DAILY [facility] Last Admin: 07/10/18 10:09 Dose: 1,000 mcg Docusate Sodium (Colace -) 100 mg PO DAILY [facility] Last Admin: 07/10/18 10:09 Dose: 100 mg Sodium Chloride (Normal Saline -) 1,000 mls @ 75 mls/hr IV ASDIR [facility] Last Admin: 07/10/18 02:24 Dose: 75 mls/hr Piperacillin Sod/Tazobactam (Sod 3.375 gm/ Dextrose) 50 mls @ 100 mls/hr IVPB Q8H-IV [facility]; Protocol Last Admin: 07/10/18 10:08 Dose: 100 mls/hr Vancomycin HCl (Vancomycin (Pre-Docked)) 1,000 mg in 250 mls @ 200 mls/hr IVPB Q24H [facility]; Protocol Last Admin: 07/09/18 14:15 Dose: 200 mls/hr Insulin Aspart (Novolog Vial Sliding Scale -) 1 vial SQ ACHS [facility]; Protocol Last Admin: 07/10/18 11:40 Dose: Not Given Metoprolol Succinate (Toprol Xl -) 25 mg PO DAILY [facility] Last Admin: 07/10/18 10:09 Dose: 25 mg - Objective Vital Signs: Vital Signs Temperature 98.7 F 07/10/18 09:00 Pulse Rate 76 07/10/18 09:00 Respiratory Rate 18 07/10/18 09:00 Blood Pressure 116/64 07/10/18 09:00 O2 Sat by Pulse Oximetry (%) 97 07/10/18 09:00 Constitutional: Yes: No Distress Eyes: Yes: Conjunctiva Clear Cardiovascular: Yes: Regular Rate and Rhythm, S1, S2 Respiratory: Yes: Diminished Gastrointestinal: Yes: Normal Bowel Sounds, Soft. No: Tenderness Edema: No Labs: CBC, BMP 07/10/18 05:50 07/10/18 05:50 INR, PTT INR 1.40 (0.83-1.09) H 07/09/18 08:03 Assessment/Plan FEVER/ LEUKOCYTOSIS R/O SEPSIS TOXIC METABOLIC ENCEPHALOPATHY AZOTEMIA AWAIT C/S CONTINUE ZOSYN REDOSE VANCOMYCIN
[2018-07-10] MEDS: VANCOMYCIN 1 GRAM (PRE-DOCKED) 1,000 MG/250 ML BAG IVPB SCH (14:06)
--- NOTE | 2018-07-10 15:34 | CONSULT ---
Consult - text type - Consultation Consultation Note: NEUROLOGY CONSULT APPRECIATED: Events reviewed and discussed with staff. ID and nephrology consult read and appreciated. Pt. examined with Daughter Jenifer at bedside. This 83 yo RH man is currently residing in [facility] and is wheelchair bound. Jenifer describes progressive gait dysfunction over the past 2 years and recurrent falls, requiring her father to move from [place] to live nearby. She also notes approximately 3 months of memory changes, including repeating himself and forgetting to take his medications. He originally was caring for his with Alzheimer's, now in [place]. Then Pt.was living alone and found by his daughter on the floor many times. He was transferred here from [facility] today due to fever and worsening confusion. Currently receiving broad spectrum abx. PMHX: HTN, HLD, T2DM, anemia, a-fib, hx DVT, hx MRSA positive nares Medications: ASA, atorvastatin, Vit B12, Losartan, FeSO4, Insulin, recently dc' d Xarelto and plavix due to fall risk Surgical: s/p laminectomy and fusion 1988, s/p Loop recorder Pt was recently admitted to [facility] 06/22/18 s/p fall and had workup including CT of head, neck, MRI/MRA of head and great vessels. Reports noted for C spine spondylotic changes, microvascular changes throughout karlie, both cerebral hemispheres, moderate dilation of lateral ventricles, and moderate atheromatatous changes throughout with more severe changes at R verebral artery without occlusion . Head CT 07/09/18 (reviewed): Moderate, diffuse atrophy with ex vacuo ventricular dilatation and diffuse periventricular white matter microvascular changes. WBC 14.8 -> 9.8 ESR 48 A1c 6.1 B 12 480 TSH 0.96; Chest xray + LLL infiltrate, UC + > 100,000 strep/enterococcus ECHO: sinus tach AGUSTIN: Cor reg, (-) bruit, restricted ROM of neck, -Kernig's, wearing diaper NEURO EXAM: Mentation/Speech: "Ayaka" corrected to [facility]. End of July 10. . No year. TRUMP. Cannot reverse. 05/18 recall at 3. CNII-CNXII: EOM intact. Full nugent appreciated. Gag ok. Motor: Mild drift and supination L hand. No frontal release findings. Strength normal in proximal and distal groups. Arreflexic in legs. Toes downgoing. Coordination: Mild FTN dystaxia B/L. Romberg - Sensation: Decreased vibration in toes and ankles Gait: Shuffling, R circumduction. Impression: 1. Toxic-Metabolic Encephalopathy 2. B/L Cerebral Dysfunction (OMS, multi-infarcts) 3. Progressive Gait dysfunction (likely multifactoral) 4. Diabetic neuropathy +/- lumbosacral radiculopathy Suggest: Cont abx therapy and IV hydration Await CD-ROM studies from daughter to review from [facility] B12, TSH normal, add RPR for OMS Risk vs. Benefit of Dual-Platelet therapy, AC with fall risk and recurrent stroke Consult cardiology, telemetry monitoring Thank you very much, Kush Lafleur MD
[2018-07-10] MEDS: ATORVASTATIN CA 20 MG TABLET (FP) PO SCH (21:23)
[2018-07-11] MEDS ORDERED: PIPERACILLIN/TAZOBACTAM 3.375 GM VIAL IVPB ONE ×3 (01:15→16:23)
[2018-07-11] MEDS ORDERED: DEXTROSE 5%-WATER - 50 ML IVPB ONE ×3 (01:15→16:24)
[2018-07-11] MEDS: PIPERACILLIN/TAZOB 3.375 GM 3.375 GM in DEXTROSE 5%-WATER - 50 ML IVPB SCH ×3 (01:29→17:33)
[2018-07-11] MEDS: INSULIN SLIDING SCALE (NOVOLOG) 1 VIAL SQ SCH ×4 (06:28→21:17)
[2018-07-11] MEDS: SODIUM CHLORIDE 1,000 ML IV SCH (06:32)
[2018-07-11 07:51] LABS: BASO % 0.7 % (0-2.0); EOS % 5.7 % (0-4.5); HEMATOCRIT 32.2 % (35.4-49); HEMOGLOBIN 11.2 GM/dL (11.7-16.9); LYMPH % 9.2 % (8-40); MCH 31.8 pg (25.7-33.7); MCHC 34.9 g/dl (32.0-35.9); MEAN CELL VOLUME 91.3 fl (80-96); MEAN PLT VOLUME 8.6 fl (7.5-11.1); NEUT % 69.4 % (42.8-82.8); PLATELET COUNT 192 K/MM3 (134-434); RBC 3.53 M/mm3 (4.00-5.60); RDW 13.5 % (11.9-15.9); WHITE BLOOD COUNT 6.8 K/mm3 (4.0-10.0)
[2018-07-11 08:26] LABS: ALBUMIN 2.5 g/dl (3.4-5.0); ALK PHOS 70 U/L (45-117); ANION GAP 9 MMOL/L (8-16); BILIRUBIN,TOTAL 0.4 mg/dL (0.2-1); BLOOD UREA NITROGEN 23 mg/dL (7-18); CHLORIDE 109 mmol/L (98-107); CO2 21 mmol/L (21-32); CREATININE 1.3 mg/dL (0.55-1.3); GLUCOSE,RANDOM 92 mg/dL (74-106); MAGNESIUM 1.9 mg/dL (1.8-2.4); PHOSPHOROUS 3.8 mg/dL (2.5-4.9); SGOT/AST 16 U/L (15-37); SGPT/ALT 15 U/L (13-61); SODIUM 139 mmol/L (136-145); TOT PROT 5.2 g/dl (6.4-8.2)
[2018-07-11] MEDS ORDERED: PT OWN MED DRAWER 7, Y5N ONE (09:30)
[2018-07-11] MEDS: ASPIRIN 81 MG CHEWABLE TABLETS PO SCH (10:52)
[2018-07-11] MEDS: DOCUSATE SODIUM 100 MG CAPSULE (FP) PO SCH (10:52)
[2018-07-11] MEDS: CYANOCOBALAMIN 1,000 MCG TABLET (FP) PO SCH (10:52)
[2018-07-11] MEDS: metoPROLOL SUCCINATE 25 MG TAB.SR.24H (FP) PO SCH (10:54)
[2018-07-11] MEDS: VANCOMYCIN 1 GRAM (PRE-DOCKED) 1,000 MG/250 ML BAG IVPB SCH (14:17)
[2018-07-11] MEDS ORDERED: SODIUM CHLORIDE 1,000 ML IV SCH (14:34)
--- NOTE | 2018-07-11 14:34 | PN ---
Progress Note (short form) - Note Progress Note: Renal follow up for SHELBI Pt seen and examined at the bedside awake and alert offers no acute complaints denies any pain, sob, N/V/D tolerating diet on IVF making urine Vital Signs Temperature 98.7 F 07/11/18 14:27 Pulse Rate 66 07/11/18 14:27 Respiratory Rate 18 07/11/18 14:27 Blood Pressure 131/82 07/11/18 14:27 O2 Sat by Pulse Oximetry (%) 97 07/10/18 21:00 Intake & Output 07/08/18 07/09/18 07/10/18 07/11/18 23:59 23:59 23:59 23:59 Intake Total 1400 2900 1325 Output Total 100 Balance 1300 2900 1325 Weight 95.254 kg 95.254 kg NAD No LE edema no bladder distension CBC, BMP 07/11/18 06:30 07/11/18 06:30 Current Medications Acetaminophen (Tylenol -) 650 mg PO Q4H PRN PRN Reason: PAIN OR FEVER Aspirin (Asa -) 81 mg PO DAILY [facility] Last Admin: 07/11/18 10:52 Dose: 81 mg Atorvastatin Calcium (Lipitor -) 20 mg PO HS [facility] Last Admin: 07/10/18 21:23 Dose: 20 mg Cyanocobalamin (Vitamin B12 -) 1,000 mcg PO DAILY [facility] Last Admin: 07/11/18 10:52 Dose: 1,000 mcg Docusate Sodium (Colace -) 100 mg PO DAILY [facility] Last Admin: 07/11/18 10:52 Dose: 100 mg Sodium Chloride (Normal Saline -) 1,000 mls @ 75 mls/hr IV ASDIR [facility] Last Admin: 07/11/18 06:32 Dose: 75 mls/hr Piperacillin Sod/Tazobactam (Sod 3.375 gm/ Dextrose) 50 mls @ 100 mls/hr IVPB Q8H-IV [facility]; Protocol Last Admin: 07/11/18 10:50 Dose: 100 mls/hr Vancomycin HCl (Vancomycin (Pre-Docked)) 1,000 mg in 250 mls @ 200 mls/hr IVPB Q24H [facility]; Protocol Last Admin: 07/11/18 14:17 Dose: 200 mls/hr Insulin Aspart (Novolog Vial Sliding Scale -) 1 vial SQ ACHS [facility]; Protocol Last Admin: 07/11/18 12:39 Dose: Not Given Metoprolol Succinate (Toprol Xl -) 25 mg PO DAILY [facility] Last Admin: 07/11/18 10:54 Dose: 25 mg 83 year old gentleman with hx of DM, HLD, Afib not on A/C, HTN, PE who presented with fever from Rehab and found to have Cr of 1.4-1.6. #SHELBI vs. CKD #Fever #Hypertension #Afib not on A/C #Hx of PE Baseline Cr 1.1 as per [facility] records Renal function improving toward baseline will decrease rate of IVF and plan to discontinue by tomorrow hold ARB for now continue empiric abx for fever/cystitis Trend renal function and electrolytes no indication for [employer] Kishor Beltre DO
--- NOTE | 2018-07-11 15:59 | PN ---
Progress Note, Physician Chief Complaint: AWAKE COMFORTABLE EVENTS AND NOTES REVIEWED - Current Medication List Current Medications: Active Medications Acetaminophen (Tylenol -) 650 mg PO Q4H PRN PRN Reason: PAIN OR FEVER Aspirin (Asa -) 81 mg PO DAILY [facility] Last Admin: 07/11/18 10:52 Dose: 81 mg Atorvastatin Calcium (Lipitor -) 20 mg PO HS [facility] Last Admin: 07/10/18 21:23 Dose: 20 mg Cyanocobalamin (Vitamin B12 -) 1,000 mcg PO DAILY [facility] Last Admin: 07/11/18 10:52 Dose: 1,000 mcg Docusate Sodium (Colace -) 100 mg PO DAILY [facility] Last Admin: 07/11/18 10:52 Dose: 100 mg Piperacillin Sod/Tazobactam (Sod 3.375 gm/ Dextrose) 50 mls @ 100 mls/hr IVPB Q8H-IV [facility]; Protocol Last Admin: 07/11/18 10:50 Dose: 100 mls/hr Vancomycin HCl (Vancomycin (Pre-Docked)) 1,000 mg in 250 mls @ 200 mls/hr IVPB Q24H [facility]; Protocol Last Admin: 07/11/18 14:17 Dose: 200 mls/hr Sodium Chloride (Normal Saline -) 1,000 mls @ 50 mls/hr IV ASDIR [facility] Insulin Aspart (Novolog Vial Sliding Scale -) 1 vial SQ ACHS [facility]; Protocol Last Admin: 07/11/18 12:39 Dose: Not Given Metoprolol Succinate (Toprol Xl -) 25 mg PO DAILY [facility] Last Admin: 07/11/18 10:54 Dose: 25 mg - Objective Vital Signs: Vital Signs Temperature 98.7 F 07/11/18 14:27 Pulse Rate 66 07/11/18 14:27 Respiratory Rate 18 07/11/18 14:27 Blood Pressure 131/82 07/11/18 14:27 O2 Sat by Pulse Oximetry (%) 97 07/10/18 21:00 Constitutional: Yes: No Distress Eyes: Yes: WNL HENT: Yes: WNL Neck: Yes: WNL Cardiovascular: Yes: Regular Rate and Rhythm Respiratory: Yes: WNL Gastrointestinal: Yes: WNL, Soft Genitourinary: Yes: Incontinence Musculoskeletal: Yes: Muscle Weakness Extremities: Yes: WNL Edema: No Peripheral Pulses WNL: Yes Integumentary: Yes: WNL Wound/Incision: Yes: Clean/Dry Neurological: Yes: Pre-Existing Deficit ...Motor Strength: LLE, RLE Psychiatric: Yes: Other Labs: CBC, BMP 07/11/18 06:30 07/11/18 06:30 INR, PTT INR 1.40 (0.83-1.09) H 07/09/18 08:03 Problem List - Problems (1) Sepsis due to urinary tract infection Code(s): A41.9 - SEPSIS, UNSPECIFIED ORGANISM; N39.0 - URINARY TRACT INFECTION, SITE NOT SPECIFIED (2) Altered mental status Code(s): R41.82 - ALTERED MENTAL STATUS, UNSPECIFIED (3) Diabetes Code(s): E11.9 - TYPE 2 DIABETES MELLITUS WITHOUT COMPLICATIONS (4) Sepsis Code(s): A41.9 - SEPSIS, UNSPECIFIED ORGANISM Qualifiers: Sepsis type: sepsis due to unspecified organism Qualified Code(s): A41.9 - Sepsis, unspecified organism (5) Toxic metabolic encephalopathy Code(s): G92 - TOXIC ENCEPHALOPATHY Assessment/Plan IV ABX ID CONSULT CHECK URINE CX AND SENS TOXIC METABOLIC ENCEPHALOPATHY PT EVAL DC PLANNING TOMORROW
[2018-07-11] MEDS: ATORVASTATIN CA 20 MG TABLET (FP) PO SCH (21:18)
[2018-07-12] MEDS ORDERED: DEXTROSE 5%-WATER - 50 ML IVPB ONE ×3 (00:19→17:43)
[2018-07-12] MEDS ORDERED: PIPERACILLIN/TAZOBACTAM 3.375 GM VIAL IVPB ONE ×3 (00:19→17:43)
[2018-07-12] MEDS: PIPERACILLIN/TAZOB 3.375 GM 3.375 GM in DEXTROSE 5%-WATER - 50 ML IVPB SCH ×4 (00:50→18:39)
[2018-07-12 06:08] LABS: EOS % 6.2 % (0-4.5); HEMOGLOBIN 11.8 GM/dL (11.7-16.9); LYMPH % 9.3 % (8-40); MCH 31.6 pg (25.7-33.7); MCHC 34.8 g/dl (32.0-35.9); MEAN CELL VOLUME 90.9 fl (80-96); MEAN PLT VOLUME 8.1 fl (7.5-11.1); MONO % 13.2 % (3.8-10.2); NEUT % 70.3 % (42.8-82.8); PLATELET COUNT 207 K/MM3 (134-434); RBC 3.73 M/mm3 (4.00-5.60); RDW 13.3 % (11.9-15.9); WHITE BLOOD COUNT 6.5 K/mm3 (4.0-10.0)
[2018-07-12 06:38] LABS: ALBUMIN 2.6 g/dl (3.4-5.0); ALK PHOS 80 U/L (45-117); ANION GAP 7 MMOL/L (8-16); BILIRUBIN,TOTAL 0.4 mg/dL (0.2-1); BLOOD UREA NITROGEN 17 mg/dL (7-18); CALCIUM 7.9 mg/dL (8.5-10.1); CHLORIDE 105 mmol/L (98-107); CO2 24 mmol/L (21-32); CREATININE 1.3 mg/dL (0.55-1.3); GLUCOSE,RANDOM 98 mg/dL (74-106); MAGNESIUM 1.9 mg/dL (1.8-2.4); PHOSPHOROUS 3.8 mg/dL (2.5-4.9); POTASSIUM 3.9 mmol/L (3.5-5.1); SGOT/AST 20 U/L (15-37); SGPT/ALT 22 U/L (13-61); SODIUM 135 mmol/L (136-145); TOT PROT 5.4 g/dl (6.4-8.2)
[2018-07-12] MEDS: INSULIN SLIDING SCALE (NOVOLOG) 1 VIAL SQ SCH ×4 (06:53→20:59)
[2018-07-12] MEDS: metoPROLOL SUCCINATE 25 MG TAB.SR.24H (FP) PO SCH (10:09)
[2018-07-12] MEDS: ASPIRIN 81 MG CHEWABLE TABLETS PO SCH (10:09)
[2018-07-12] MEDS: DOCUSATE SODIUM 100 MG CAPSULE (FP) PO SCH (10:09)
[2018-07-12] MEDS: CYANOCOBALAMIN 1,000 MCG TABLET (FP) PO SCH (10:09)
--- NOTE | 2018-07-12 12:15 | PN ---
Progress Note (short form) - Note Progress Note: Renal follow up for SHELBI Pt seen and examined at the bedside awake and alert offers no acute complaints no sob, chest pain, abd pain, N/V/D making urine Vital Signs Temperature 98.2 F 07/12/18 10:36 Pulse Rate 72 07/12/18 10:36 Respiratory Rate 18 07/12/18 10:36 Blood Pressure 140/83 07/12/18 10:36 O2 Sat by Pulse Oximetry (%) 95 07/12/18 09:00 Intake & Output 07/09/18 07/10/18 07/11/18 07/12/18 23:59 23:59 23:59 23:59 Intake Total 1400 2900 1795 950 Output Total 100 Balance 1300 2900 1795 950 Weight 95.254 kg NAD No LE edema no bladder distension 07/12/18 06:00 07/12/18 06:00 Current Medications Acetaminophen (Tylenol -) 650 mg PO Q4H PRN PRN Reason: PAIN OR FEVER Aspirin (Asa -) 81 mg PO DAILY [facility] Last Admin: 07/12/18 10:09 Dose: 81 mg Atorvastatin Calcium (Lipitor -) 20 mg PO HS [facility] Last Admin: 07/11/18 21:18 Dose: 20 mg Cyanocobalamin (Vitamin B12 -) 1,000 mcg PO DAILY [facility] Last Admin: 07/12/18 10:09 Dose: 1,000 mcg Docusate Sodium (Colace -) 100 mg PO DAILY [facility] Last Admin: 07/12/18 10:09 Dose: 100 mg Piperacillin Sod/Tazobactam (Sod 3.375 gm/ Dextrose) 50 mls @ 100 mls/hr IVPB Q8H-IV [facility]; Protocol Last Admin: 07/12/18 10:10 Dose: 100 mls/hr Vancomycin HCl (Vancomycin (Pre-Docked)) 1,000 mg in 250 mls @ 200 mls/hr IVPB Q24H [facility]; Protocol Last Admin: 07/11/18 14:17 Dose: 200 mls/hr Sodium Chloride (Normal Saline -) 1,000 mls @ 50 mls/hr IV ASDIR [facility] Last Admin: 07/12/18 00:50 Dose: 50 mls/hr Insulin Aspart (Novolog Vial Sliding Scale -) 1 vial SQ ACHS [facility]; Protocol Last Admin: 07/12/18 06:53 Dose: Not Given Metoprolol Succinate (Toprol Xl -) 25 mg PO DAILY [facility] Last Admin: 07/12/18 10:09 Dose: 25 mg 83 year old gentleman with hx of DM, HLD, Afib not on A/C, HTN, PE who presented with fever from Rehab and found to have Cr of 1.4-1.6. #SHELBI (Baseline Cr 1.1 as per [facility] records) #Fever #Hypertension #Afib not on A/C #Hx of PE Renal function appears stable and not signifincat electrolyte or acid/base disturbance. Can discontinue IVF and trend BUN/Cr Continue Abx as per primary service BP is higher off ARB but is acceptable Kishor Beltre DO
--- NOTE | 2018-07-12 13:20 | PN ---
Progress Note, Physician Chief Complaint: Sepsis AMS History of Present Illness: Previous notes and events reviewed awake and alert but confused NAD UC positive WBC 6.5 - Current Medication List Current Medications: Active Medications Acetaminophen (Tylenol -) 650 mg PO Q4H PRN PRN Reason: PAIN OR FEVER Aspirin (Asa -) 81 mg PO DAILY [facility] Last Admin: 07/12/18 10:09 Dose: 81 mg Atorvastatin Calcium (Lipitor -) 20 mg PO HS [facility] Last Admin: 07/11/18 21:18 Dose: 20 mg Cyanocobalamin (Vitamin B12 -) 1,000 mcg PO DAILY [facility] Last Admin: 07/12/18 10:09 Dose: 1,000 mcg Docusate Sodium (Colace -) 100 mg PO DAILY [facility] Last Admin: 07/12/18 10:09 Dose: 100 mg Piperacillin Sod/Tazobactam (Sod 3.375 gm/ Dextrose) 50 mls @ 100 mls/hr IVPB Q8H-IV [facility]; Protocol Last Admin: 07/12/18 10:10 Dose: 100 mls/hr Vancomycin HCl (Vancomycin (Pre-Docked)) 1,000 mg in 250 mls @ 200 mls/hr IVPB Q24H [facility]; Protocol Last Admin: 07/11/18 14:17 Dose: 200 mls/hr Insulin Aspart (Novolog Vial Sliding Scale -) 1 vial SQ ACHS [facility]; Protocol Last Admin: 07/12/18 12:45 Dose: Not Given Metoprolol Succinate (Toprol Xl -) 25 mg PO DAILY [facility] Last Admin: 07/12/18 10:09 Dose: 25 mg - Objective Vital Signs: Vital Signs Temperature 98.2 F 07/12/18 10:36 Pulse Rate 72 07/12/18 10:36 Respiratory Rate 18 07/12/18 10:36 Blood Pressure 140/83 07/12/18 10:36 O2 Sat by Pulse Oximetry (%) 95 07/12/18 09:00 Constitutional: Yes: Well Nourished, No Distress, Calm Eyes: Yes: Conjunctiva Clear HENT: Yes: Atraumatic Neck: Yes: Supple Cardiovascular: Yes: Regular Rate and Rhythm Respiratory: Yes: Regular, CTA Bilaterally Gastrointestinal: Yes: Normal Bowel Sounds, Soft, Other (non tender) Genitourinary: Yes: Incontinence Musculoskeletal: Yes: Muscle Weakness Extremities: Yes: WNL Edema: No Neurological: Yes: Alert, Pre-Existing Deficit Labs: CBC, BMP 07/12/18 06:00 07/12/18 06:00 INR, PTT INR 1.40 (0.83-1.09) H 07/09/18 08:03 Microbiology 07/08/18 23:00 Blood - Peripheral Venous Blood Culture - Preliminary NO GROWTH OBTAINED AFTER 72 HOURS, INCUBATION TO CONTINUE FOR 2 DAYS. 07/08/18 23:00 Blood - Peripheral Venous Blood Culture - Preliminary NO GROWTH OBTAINED AFTER 72 HOURS, INCUBATION TO CONTINUE FOR 2 DAYS. 07/09/18 01:00 Urine - Urine - Catheterized Urine Culture - Final Enterococcus Faecalis 07/09/18 23:00 Urine For Antigen Detection Legionella Antigen - Final 07/09/18 23:00 Urine For Antigen Detection Streptococcus pneumoniae Antigen (M - Final <Jo-Ann Canales - Last Filed: 07/12/18 13:15> - Current Medication List Current Medications: Active Medications Acetaminophen (Tylenol -) 650 mg PO Q4H PRN PRN Reason: PAIN OR FEVER Amoxicillin/Clavulanate Potassium (Augmentin - 875mg Tablet) 1 tab PO BID@0800, 1730 [facility] Last Admin: 07/14/18 18:30 Dose: 1 tab Aspirin (Asa -) 81 mg PO DAILY [facility] Last Admin: 07/14/18 10:00 Dose: 81 mg Atorvastatin Calcium (Lipitor -) 20 mg PO [facility] Last Admin: 07/14/18 22:05 Dose: 20 mg Cyanocobalamin (Vitamin B12 -) 1,000 mcg PO DAILY [facility] Last Admin: 07/14/18 10:00 Dose: 1,000 mcg Docusate Sodium (Colace -) 100 mg PO DAILY [facility] Last Admin: 07/14/18 10:00 Dose: 100 mg Donepezil HCl (Aricept -) 5 mg PO [facility] Last Admin: 07/14/18 22:05 Dose: 5 mg Insulin Aspart (Novolog Vial Sliding Scale -) 1 vial SQ [facility]; Protocol Last Admin: 07/15/18 07:00 Dose: Not Given Metoprolol Succinate (Toprol Xl -) 25 mg PO DAILY [facility] Last Admin: 07/14/18 10:00 Dose: 25 mg Rivaroxaban (Xarelto -) 20 mg PO DAILY@1800 [facility] Last Admin: 07/14/18 18:30 Dose: 20 mg - Objective Vital Signs: Vital Signs Temperature 97.9 F 07/15/18 08:04 Pulse Rate 66 07/15/18 08:04 Respiratory Rate 20 07/15/18 08:04 Blood Pressure 115/73 07/15/18 08:04 O2 Sat by Pulse Oximetry (%) 96 07/14/18 09:00 Labs: CBC, BMP 07/14/18 06:30 07/14/18 06:30 INR, PTT INR 1.40 (0.83-1.09) H 07/09/18 08:03 <Lee Martinez - Last Filed: 07/15/18 08:54> Problem List - Problems (1) SHELBI (acute kidney injury) Assessment/Plan: -renal on board -current BUN/Cr 01/06.3 will continue to monitor -Renal US: bilateral renal cysts, possible nonobstructing calculus right kidney Code(s): N17.9 - ACUTE KIDNEY FAILURE, UNSPECIFIED (2) Altered mental status Assessment/Plan: -neurology consult placed -Head CT: no acute bleed or mass or fracture, no CT evidence of acute infarct Code(s): R41.82 - ALTERED MENTAL STATUS, UNSPECIFIED (3) Diabetes Assessment/Plan: -HgA1c 6.9% -BGM ACHS -ISS -diabetic diet Code(s): E11.9 - TYPE 2 DIABETES MELLITUS WITHOUT COMPLICATIONS (4) Recurrent falls Assessment/Plan: -PT eval -fall precaution Code(s): R29.6 - REPEATED FALLS (5) Sepsis Assessment/Plan: -ID on board -continue with vanco and zosyn -tylenol 65omg PO prn for temp >100F -UC positive for group D strep or enterococcus -BC neg -currently afebrile Code(s): A41.9 - SEPSIS, UNSPECIFIED ORGANISM Qualifiers: Sepsis type: sepsis due to unspecified organism Qualified Code(s): A41.9 - Sepsis, unspecified organism <Jo-Ann Canales - Last Filed: 07/12/18 13:15> - Problems (1) Sepsis due to urinary tract infection Code(s): A41.9 - SEPSIS, UNSPECIFIED ORGANISM; N39.0 - URINARY TRACT INFECTION, SITE NOT SPECIFIED (2) Altered mental status Code(s): R41.82 - ALTERED MENTAL STATUS, UNSPECIFIED (3) Diabetes Code(s): E11.9 - TYPE 2 DIABETES MELLITUS WITHOUT COMPLICATIONS (4) Sepsis Code(s): A41.9 - SEPSIS, UNSPECIFIED ORGANISM Qualifiers: Sepsis type: sepsis due to unspecified organism Qualified Code(s): A41.9 - Sepsis, unspecified organism (5) Toxic metabolic encephalopathy Code(s): G92 - TOXIC ENCEPHALOPATHY <Lee Martinez - Last Filed: 07/15/18 08:54> Assessment/Plan see problem list dvt ppx <Jo-Ann Canales - Last Filed: 07/12/18 13:15> NEUROLOGY EVAL, TOXIX METABOLIC ENCEPHALOPATHY VERSUS ISCHEMIC STROKE? H/O OF CVA. WILL CHECK CHOLESTEROL LEVEL, ASA, LIPITOR, POSSIBLY PLAVIX OR XARELTO. <Lee Martinez - Last Filed: 07/15/18 08:54>
[2018-07-12] MEDS: VANCOMYCIN 1 GRAM (PRE-DOCKED) 1,000 MG/250 ML BAG IVPB SCH (15:04)
--- NOTE | 2018-07-12 18:20 | PN ---
Progress Note, Physician History of Present Illness: LETHARGIC BUT ABLE TO ANSWER SIMPLE QUESTIONS DENIES PAIN DENIES DYSURIA TEMPS DOWN AFEBRILE WBC IMPROVED NOW WNL BC (-) URINE C/S ENTEROCOCCUS ? CONTAMINANT CT CHEST ATELECTASIS - Current Medication List Current Medications: Active Medications Acetaminophen (Tylenol -) 650 mg PO Q4H PRN PRN Reason: PAIN OR FEVER Aspirin (Asa -) 81 mg PO DAILY [facility] Last Admin: 07/12/18 10:09 Dose: 81 mg Atorvastatin Calcium (Lipitor -) 20 mg PO HS [facility] Last Admin: 07/11/18 21:18 Dose: 20 mg Cyanocobalamin (Vitamin B12 -) 1,000 mcg PO DAILY [facility] Last Admin: 07/12/18 10:09 Dose: 1,000 mcg Docusate Sodium (Colace -) 100 mg PO DAILY [facility] Last Admin: 07/12/18 10:09 Dose: 100 mg Piperacillin Sod/Tazobactam (Sod 3.375 gm/ Dextrose) 50 mls @ 100 mls/hr IVPB Q8H-IV [facility]; Protocol Last Admin: 07/12/18 10:10 Dose: 100 mls/hr Vancomycin HCl (Vancomycin (Pre-Docked)) 1,000 mg in 250 mls @ 200 mls/hr IVPB Q24H [facility]; Protocol Last Admin: 07/12/18 15:04 Dose: 200 mls/hr Insulin Aspart (Novolog Vial Sliding Scale -) 1 vial SQ ACHS [facility]; Protocol Last Admin: 07/12/18 17:54 Dose: Not Given Metoprolol Succinate (Toprol Xl -) 25 mg PO DAILY [facility] Last Admin: 07/12/18 10:09 Dose: 25 mg - Objective Vital Signs: Vital Signs Temperature 98 F 07/12/18 17:14 Pulse Rate 68 07/12/18 17:14 Respiratory Rate 18 07/12/18 17:14 Blood Pressure 153/96 07/12/18 17:14 O2 Sat by Pulse Oximetry (%) 95 07/12/18 09:00 Constitutional: Yes: No Distress Cardiovascular: Yes: Regular Rate and Rhythm, S1, S2 Respiratory: Yes: Diminished Gastrointestinal: Yes: Normal Bowel Sounds, Soft. No: Tenderness Edema: No Labs: CBC, BMP 07/12/18 06:00 07/12/18 06:00 INR, PTT INR 1.40 (0.83-1.09) H 07/09/18 08:03 Assessment/Plan FEVER/ LEUKOCYTOSIS R/O SEPSIS TOXIC METABOLIC ENCEPHALOPATHY AZOTEMIA CONTINUE ZOSYN D/C VANCOMYCIN
--- NOTE | 2018-07-12 19:43 | PN ---
Progress Note (short form) - Note Progress Note: NEUROLOGY PROGRESS: Events reviewed and discussed with daughter, Jenifer, jayson AM. MRI/ MRAngios from [facility], performed 2 weeks ago, are now available for review on our [facility] system. MRI of Brain: Moderate, diffuse atrophy with ex vacuo ventricular enlargement and multilpe microvascular infarcts. Still on Pipercillin, vancomicin. WBC 14.8 -> 6.5K C12=802 pg%; TSH=0.96; RPR-Neg; ESR=48 mm/hr Today patient c/o neck pain and stiffness "for 3 days." AGUSTIN: No evidence of head trauma. No bruits. Decreased neck ROM NEURO: Ox "[place].". 1992. Recalls 0 of 3 @ 3 mins. Sparse fluent speech Full nugent. Gag OK Min left drift. Normal grasps. Areflexic in legs. Plantars silent. No cogwheel rigidity. Decreased vib to mid-garcia Stands with assist. Frozen. 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 SUGGEST: Continue Rx. Advance diet Mobilize OO bed to chair and PT for gait with walker. As discussed with his daughter, Pt will likely require SNF level of care. Try Donepezil 5 mg qd after breakfast Thank you very much, Kush Lafleur MD
[2018-07-12] MEDS: ATORVASTATIN CA 20 MG TABLET (FP) PO SCH (21:06)
[2018-07-13] MEDS ORDERED: PIPERACILLIN/TAZOBACTAM 3.375 GM VIAL IVPB ONE ×3 (00:39→17:00)
[2018-07-13] MEDS ORDERED: DEXTROSE 5%-WATER - 50 ML IVPB ONE ×3 (00:39→17:00)
[2018-07-13] MEDS: PIPERACILLIN/TAZOB 3.375 GM 3.375 GM in DEXTROSE 5%-WATER - 50 ML IVPB SCH ×3 (00:59→17:31)
[2018-07-13] MEDS: INSULIN SLIDING SCALE (NOVOLOG) 1 VIAL SQ SCH ×4 (05:59→21:15)
[2018-07-13 08:14] LABS: BASO % 0.7 % (0-2.0); EOS % 5.6 % (0-4.5); HEMATOCRIT 35.7 % (35.4-49); HEMOGLOBIN 12.4 GM/dL (11.7-16.9); LYMPH % 6.9 % (8-40); MCH 31.4 pg (25.7-33.7); MCHC 34.8 g/dl (32.0-35.9); MEAN PLT VOLUME 8.6 fl (7.5-11.1); MONO % 11.5 % (3.8-10.2); NEUT % 75.3 % (42.8-82.8); PLATELET COUNT 226 K/MM3 (134-434); RBC 3.97 M/mm3 (4.00-5.60); RDW 13.2 % (11.9-15.9); WHITE BLOOD COUNT 7.5 K/mm3 (4.0-10.0)
[2018-07-13 08:36] LABS: ALBUMIN 2.8 g/dl (3.4-5.0); ALK PHOS 85 U/L (45-117); ANION GAP 11 MMOL/L (8-16); BILIRUBIN,TOTAL 0.5 mg/dL (0.2-1); BLOOD UREA NITROGEN 15 mg/dL (7-18); CHLORIDE 104 mmol/L (98-107); CO2 22 mmol/L (21-32); CREATININE 1.3 mg/dL (0.55-1.3); GLUCOSE,RANDOM 98 mg/dL (74-106); SGOT/AST 12 U/L (15-37); SGPT/ALT 21 U/L (13-61); SODIUM 137 mmol/L (136-145); TOT PROT 5.8 g/dl (6.4-8.2)
[2018-07-13] MEDS: CYANOCOBALAMIN 1,000 MCG TABLET (FP) PO SCH (10:07)
[2018-07-13] MEDS: DOCUSATE SODIUM 100 MG CAPSULE (FP) PO SCH (10:10)
[2018-07-13] MEDS: ASPIRIN 81 MG CHEWABLE TABLETS PO SCH (10:10)
[2018-07-13] MEDS: metoPROLOL SUCCINATE 25 MG TAB.SR.24H (FP) PO SCH (10:11)
--- NOTE | 2018-07-13 11:26 | PN ---
Progress Note, Physician Chief Complaint: Sepsis AMS History of Present Illness: Previous notes and events reviewed awake and alert but confused NAD UC positive WBC 7.5 - Current Medication List Current Medications: Active Medications Acetaminophen (Tylenol -) 650 mg PO Q4H PRN PRN Reason: PAIN OR FEVER Aspirin (Asa -) 81 mg PO DAILY [facility] Last Admin: 07/13/18 10:10 Dose: 81 mg Atorvastatin Calcium (Lipitor -) 20 mg PO HS [facility] Last Admin: 07/12/18 21:06 Dose: 20 mg Cyanocobalamin (Vitamin B12 -) 1,000 mcg PO DAILY [facility] Last Admin: 07/13/18 10:07 Dose: 1,000 mcg Docusate Sodium (Colace -) 100 mg PO DAILY [facility] Last Admin: 07/13/18 10:10 Dose: 100 mg Piperacillin Sod/Tazobactam (Sod 3.375 gm/ Dextrose) 50 mls @ 100 mls/hr IVPB Q8H-IV [facility]; Protocol Last Admin: 07/13/18 10:06 Dose: 100 mls/hr Vancomycin HCl (Vancomycin (Pre-Docked)) 1,000 mg in 250 mls @ 200 mls/hr IVPB Q24H [facility]; Protocol Last Admin: 07/12/18 15:04 Dose: 200 mls/hr Insulin Aspart (Novolog Vial Sliding Scale -) 1 vial SQ ACHS [facility]; Protocol Last Admin: 07/13/18 05:59 Dose: Not Given Metoprolol Succinate (Toprol Xl -) 25 mg PO DAILY [facility] Last Admin: 07/13/18 10:11 Dose: 25 mg - Objective Vital Signs: Vital Signs Temperature 98.1 F 07/13/18 06:00 Pulse Rate 70 07/13/18 06:00 Respiratory Rate 20 07/13/18 06:00 Blood Pressure 152/89 07/13/18 06:00 O2 Sat by Pulse Oximetry (%) 95 07/12/18 20:52 Constitutional: Yes: Well Nourished, No Distress, Calm Eyes: Yes: Conjunctiva Clear HENT: Yes: Atraumatic Cardiovascular: Yes: Regular Rate and Rhythm Respiratory: Yes: Diminished Gastrointestinal: Yes: Normal Bowel Sounds, Soft Genitourinary: Yes: Incontinence Musculoskeletal: Yes: Muscle Weakness Extremities: Yes: WNL Edema: No Neurological: Yes: Alert, Pre-Existing Deficit Labs: CBC, BMP 07/13/18 06:26 07/13/18 06:26 INR, PTT INR 1.40 (0.83-1.09) H 07/09/18 08:03 Microbiology 07/08/18 23:00 Blood - Peripheral Venous Blood Culture - Preliminary NO GROWTH OBTAINED AFTER 96 HOURS, INCUBATION TO CONTINUE FOR 1 DAYS. 07/08/18 23:00 Blood - Peripheral Venous Blood Culture - Preliminary NO GROWTH OBTAINED AFTER 96 HOURS, INCUBATION TO CONTINUE FOR 1 DAYS. 07/09/18 01:00 Urine - Urine - Catheterized Urine Culture - Final Enterococcus Faecalis 07/09/18 23:00 Urine For Antigen Detection Legionella Antigen - Final 07/09/18 23:00 Urine For Antigen Detection Streptococcus pneumoniae Antigen (M - Final <Jo-Ann Canales - Last Filed: 07/13/18 11:23> - Current Medication List Current Medications: Active Medications Acetaminophen (Tylenol -) 650 mg PO Q4H PRN PRN Reason: PAIN OR FEVER Amoxicillin/Clavulanate Potassium (Augmentin - 875mg Tablet) 1 tab PO BID@0800, 1730 [facility] Last Admin: 07/14/18 18:30 Dose: 1 tab Aspirin (Asa -) 81 mg PO DAILY [facility] Last Admin: 07/14/18 10:00 Dose: 81 mg Atorvastatin Calcium (Lipitor -) 20 mg PO [facility] Last Admin: 07/14/18 22:05 Dose: 20 mg Cyanocobalamin (Vitamin B12 -) 1,000 mcg PO DAILY [facility] Last Admin: 07/14/18 10:00 Dose: 1,000 mcg Docusate Sodium (Colace -) 100 mg PO DAILY [facility] Last Admin: 07/14/18 10:00 Dose: 100 mg Donepezil HCl (Aricept -) 5 mg PO HS [facility] Last Admin: 07/14/18 22:05 Dose: 5 mg Insulin Aspart (Novolog Vial Sliding Scale -) 1 vial SQ [facility]; Protocol Last Admin: 07/15/18 07:00 Dose: Not Given Metoprolol Succinate (Toprol Xl -) 25 mg PO DAILY [facility] Last Admin: 07/14/18 10:00 Dose: 25 mg Rivaroxaban (Xarelto -) 20 mg PO DAILY@1800 [facility] Last Admin: 07/14/18 18:30 Dose: 20 mg - Objective Vital Signs: Vital Signs Temperature 97.9 F 07/15/18 08:04 Pulse Rate 66 07/15/18 08:04 Respiratory Rate 20 07/15/18 08:04 Blood Pressure 115/73 07/15/18 08:04 O2 Sat by Pulse Oximetry (%) 96 07/14/18 09:00 Labs: CBC, BMP 07/14/18 06:30 07/14/18 06:30 INR, PTT INR 1.40 (0.83-1.09) H 07/09/18 08:03 <Lee Martinez - Last Filed: 07/15/18 08:49> Problem List - Problems (1) SHELBI (acute kidney injury) Assessment/Plan: -renal on board -current BUN/Cr 30/05.3 will continue to monitor -Renal US: bilateral renal cysts, possible nonobstructing calculus right kidney Code(s): N17.9 - ACUTE KIDNEY FAILURE, UNSPECIFIED (2) Altered mental status Assessment/Plan: -neurology consult placed -Head CT: no acute bleed or mass or fracture, no CT evidence of acute infarct -will start on Donepezil 5mg daily Code(s): R41.82 - ALTERED MENTAL STATUS, UNSPECIFIED (3) Diabetes Assessment/Plan: -HgA1c 6.9% -BGM ACHS -ISS -diabetic diet Code(s): E11.9 - TYPE 2 DIABETES MELLITUS WITHOUT COMPLICATIONS (4) Recurrent falls Assessment/Plan: -PT eval -fall precaution -return to SNF on discharge Code(s): R29.6 - REPEATED FALLS (5) Sepsis Assessment/Plan: -ID on board -continue with vanco and zosyn -tylenol 65omg PO prn for temp >100F -UC positive for group D strep or enterococcus -BC neg -currently afebrile and wbc 7.5 Code(s): A41.9 - SEPSIS, UNSPECIFIED ORGANISM Qualifiers: Sepsis type: sepsis due to unspecified organism Qualified Code(s): A41.9 - Sepsis, unspecified organism <Jo-Ann Canales - Last Filed: 07/13/18 11:23> - Problems (1) Sepsis due to urinary tract infection Code(s): A41.9 - SEPSIS, UNSPECIFIED ORGANISM; N39.0 - URINARY TRACT INFECTION, SITE NOT SPECIFIED (2) Altered mental status Code(s): R41.82 - ALTERED MENTAL STATUS, UNSPECIFIED (3) Diabetes Code(s): E11.9 - TYPE 2 DIABETES MELLITUS WITHOUT COMPLICATIONS (4) Sepsis Code(s): A41.9 - SEPSIS, UNSPECIFIED ORGANISM Qualifiers: Sepsis type: sepsis due to unspecified organism Qualified Code(s): A41.9 - Sepsis, unspecified organism (5) Toxic metabolic encephalopathy Code(s): G92 - TOXIC ENCEPHALOPATHY <Lee Martinez - Last Filed: 07/15/18 08:49> Assessment/Plan see problem list dvt ppx <Jo-Ann Canales - Last Filed: 07/13/18 11:23> AWAITING MRI BRAIN, CAROTID DOPPLER, LIPID PANEL. I AGREE WITH ABOVE NOTE <Lee Martinez - Last Filed: 07/15/18 08:49>
[2018-07-13] MEDS: VANCOMYCIN 1 GRAM (PRE-DOCKED) 1,000 MG/250 ML BAG IVPB SCH (13:57)
[2018-07-13] MEDS: ATORVASTATIN CA 20 MG TABLET (FP) PO SCH (21:12)
[2018-07-14] MEDS ORDERED: PIPERACILLIN/TAZOBACTAM 3.375 GM VIAL IVPB ONE ×2 (01:40→09:57)
[2018-07-14] MEDS ORDERED: DEXTROSE 5%-WATER - 50 ML IVPB ONE ×2 (01:41→09:57)
[2018-07-14] MEDS: PIPERACILLIN/TAZOB 3.375 GM 3.375 GM in DEXTROSE 5%-WATER - 50 ML IVPB SCH ×2 (01:55→10:00)
[2018-07-14] MEDS: INSULIN SLIDING SCALE (NOVOLOG) 1 VIAL SQ SCH ×4 (06:00→22:05)
[2018-07-14 07:41] LABS: BASO % 0.8 % (0-2.0); EOS % 5.3 % (0-4.5); HEMATOCRIT 35.8 % (35.4-49); HEMOGLOBIN 12.5 GM/dL (11.7-16.9); LYMPH % 9.2 % (8-40); MCH 31.5 pg (25.7-33.7); MCHC 34.9 g/dl (32.0-35.9); MEAN CELL VOLUME 90.3 fl (80-96); MEAN PLT VOLUME 8.4 fl (7.5-11.1); MONO % 10.9 % (3.8-10.2); NEUT % 73.8 % (42.8-82.8); PLATELET COUNT 237 K/MM3 (134-434); RBC 3.96 M/mm3 (4.00-5.60); RDW 13.5 % (11.9-15.9); WHITE BLOOD COUNT 9.1 K/mm3 (4.0-10.0)
[2018-07-14 08:20] LABS: ALBUMIN 2.7 g/dl (3.4-5.0); ALK PHOS 88 U/L (45-117); ANION GAP 9 MMOL/L (8-16); BILIRUBIN,TOTAL 0.5 mg/dL (0.2-1); BLOOD UREA NITROGEN 18 mg/dL (7-18); CALCIUM 8.5 mg/dL (8.5-10.1); CHLORIDE 102 mmol/L (98-107); CO2 25 mmol/L (21-32); CREATININE 1.3 mg/dL (0.55-1.3); GLUCOSE,RANDOM 106 mg/dL (74-106); SGOT/AST 17 U/L (15-37); SGPT/ALT 24 U/L (13-61); SODIUM 136 mmol/L (136-145); TOT PROT 5.7 g/dl (6.4-8.2)
[2018-07-14] MEDS: DOCUSATE SODIUM 100 MG CAPSULE (FP) PO SCH (10:00)
[2018-07-14] MEDS: ASPIRIN 81 MG CHEWABLE TABLETS PO SCH (10:00)
[2018-07-14] MEDS: metoPROLOL SUCCINATE 25 MG TAB.SR.24H (FP) PO SCH (10:00)
[2018-07-14] MEDS: CYANOCOBALAMIN 1,000 MCG TABLET (FP) PO SCH (10:00)
--- NOTE | 2018-07-14 10:55 | DS ---
Physical Examination Vital Signs: Vital Signs Temperature 98.3 F 07/14/18 06:00 Pulse Rate 77 07/14/18 06:00 Respiratory Rate 20 07/14/18 06:00 Blood Pressure 118/70 07/14/18 06:00 O2 Sat by Pulse Oximetry (%) 96 07/13/18 21:00 Findings/Remarks: Patient is a 83 y/o male with past medical history DM, HLD, afib, HTN, PE. Patient was admitted to [facility] for fever and AMS. WBC is currenty wnl 9.1 and afebrile. Evaluated by Neuroology while inpatient and recommendations appreciated. Completed IV course of antibiotic therapy and will be discharged home with oral antibiotics as per ID recommendations. Constitutional: Yes: No Distress, Calm Eyes: Yes: Conjunctiva Clear HENT: Yes: Atraumatic Cardiovascular: Yes: Regular Rate and Rhythm Respiratory: Yes: Regular, CTA Bilaterally Gastrointestinal: Yes: Normal Bowel Sounds, Soft, Other (non tender) Renal/: Yes: Incontinence Musculoskeletal: Yes: Muscle Weakness Extremities: Yes: WNL Edema: No Neurological: Yes: Alert, Pre-Existing Deficit Psychiatric: Yes: Alert Labs: CBC, BMP 07/14/18 06:30 07/14/18 06:30 Microbiology 07/08/18 23:00 Blood - Peripheral Venous Blood Culture - Final NO GROWTH AFTER 5 DAYS INCUBATION 07/08/18 23:00 Blood - Peripheral Venous Blood Culture - Final NO GROWTH AFTER 5 DAYS INCUBATION 07/09/18 01:00 Urine - Urine - Catheterized Urine Culture - Final Enterococcus Faecalis 07/09/18 23:00 Urine For Antigen Detection Legionella Antigen - Final 07/09/18 23:00 Urine For Antigen Detection Streptococcus pneumoniae Antigen (M - Final <Jo-Ann Canales - Last Filed: 07/14/18 10:50> Vital Signs: Vital Signs Temperature 97.9 F 07/15/18 08:04 Pulse Rate 66 07/15/18 08:04 Respiratory Rate 20 07/15/18 08:04 Blood Pressure 115/73 07/15/18 08:04 O2 Sat by Pulse Oximetry (%) 96 07/14/18 09:00 Labs: CBC, BMP 07/14/18 06:30 07/14/18 06:30 <Lee Martinez - Last Filed: 07/15/18 08:52> Discharge Summary Reason For Visit: SEPSIS Current Active Problems SHELBI (acute kidney injury) (Acute) Altered mental status (Acute) Diabetes (Acute) Recurrent falls (Acute) Sepsis (Acute) Sepsis due to urinary tract infection (Acute) Toxic metabolic encephalopathy (Acute) Procedures: Principal: Chest and Head CT scan Hospital Course: see progress notes Laboratory Tests 07/08/18 07/08/18 07/08/18 22:54 23:00 23:00 WBC 14.8 H RBC 4.71 Hgb 15.0 Hct 43.4 MCV 92.3 MCH 31.9 MCHC 34.5 RDW 13.5 Plt Count 250 MPV 8.8 Absolute Neuts (auto) 12.1 H Neutrophils % 82.2 Lymphocytes % 5.3 L Monocytes % 11.6 H Eosinophils % 0.1 Basophils % 0.8 Nucleated RBC % 0 ESR PT with INR 20.30 H INR 1.71 H PTT (Actin FS) 27.0 VBG pH POC VBG pCO2 POC VBG pO2 Mixed VBG HCO3 Sodium Potassium Chloride Carbon Dioxide Anion Gap BUN Creatinine Creat Clearance w eGFR POC Glucometer 131 Random Glucose Hemoglobin A1c % Lactic Acid Calcium Phosphorus Magnesium Total Bilirubin AST ALT Alkaline Phosphatase Troponin I Total Protein Albumin Vitamin B12 TSH Free T4 Urine Color Urine Appearance Urine pH Ur Specific [place] Urine Protein Urine Glucose (UA) Urine Ketones Urine Blood Urine Nitrite Urine Bilirubin Urine Urobilinogen Ur Leukocyte Esterase Urine WBC (Auto) Urine RBC (Auto) Ur Epithelial Cells Urine Mucus RPR Titer Influenza A (Rapid) Influenza B (Rapid) 07/08/18 07/08/18 07/08/18 23:00 23:00 23:00 WBC RBC Hgb Hct MCV MCH MCHC RDW Plt Count MPV Absolute Neuts (auto) Neutrophils % Lymphocytes % Monocytes % Eosinophils % Basophils % Nucleated RBC % ESR PT with INR INR PTT (Actin FS) VBG pH POC VBG pCO2 POC VBG pO2 Mixed VBG HCO3 Sodium 136 Potassium 4.6 Chloride 106 Carbon Dioxide 22 Anion Gap 8 BUN 27 H Creatinine 1.4 H Creat Clearance w eGFR 48.52 POC Glucometer Random Glucose 131 H Hemoglobin A1c % Lactic Acid 1.0 Calcium 8.8 Phosphorus Magnesium Total Bilirubin 0.5 AST 20 ALT 15 Alkaline Phosphatase 97 Troponin I < 0.02 Total Protein 6.8 Albumin 3.6 Vitamin B12 TSH Free T4 Urine Color Urine Appearance Urine pH Ur Specific [place] Urine Protein Urine Glucose (UA) Urine Ketones Urine Blood Urine Nitrite Urine Bilirubin Urine Urobilinogen Ur Leukocyte Esterase Urine WBC (Auto) Urine RBC (Auto) Ur Epithelial Cells Urine Mucus RPR Titer Influenza A (Rapid) Influenza B (Rapid) 07/08/18 07/09/18 07/09/18 23:00 00:09 01:00 WBC RBC Hgb Hct MCV MCH MCHC RDW Plt Count MPV Absolute Neuts (auto) Neutrophils % Lymphocytes % Monocytes % Eosinophils % Basophils % Nucleated RBC % ESR PT with INR INR PTT (Actin FS) VBG pH 7.38 POC VBG pCO2 34.9 L POC VBG pO2 51.5 H Mixed VBG HCO3 20.3 Sodium Potassium Chloride Carbon Dioxide Anion Gap BUN Creatinine Creat Clearance w eGFR POC Glucometer Random Glucose Hemoglobin A1c % Lactic Acid Calcium Phosphorus Magnesium Total Bilirubin AST ALT Alkaline Phosphatase Troponin I Total Protein Albumin Vitamin B12 TSH Free T4 Urine Color Yellow Urine Appearance Slcloudy Urine pH 5.0 Ur Specific [place] 1.018 Urine Protein 2+ H Urine Glucose (UA) Negative Urine Ketones 1+ H Urine Blood 3+ H Urine Nitrite Negative Urine Bilirubin Negative Urine Urobilinogen Negative Ur Leukocyte Esterase Negative Urine WBC (Auto) None Urine RBC (Auto) 664 Ur Epithelial Cells Rare Urine Mucus Rare RPR Titer Influenza A (Rapid) Negative Influenza B (Rapid) Negative 07/09/18 07/09/18 07/09/18 08:03 08:03 08:03 WBC 13.3 H RBC 4.17 Hgb 13.1 Hct 37.8 MCV 90.7 MCH 31.3 MCHC 34.6 RDW 13.7 Plt Count 235 MPV 8.4 Absolute Neuts (auto) 10.8 H Neutrophils % 81.1 Lymphocytes % 5.6 L Monocytes % 12.4 H Eosinophils % 0.2 D Basophils % 0.7 Nucleated RBC % 0 ESR PT with INR 16.60 H INR 1.40 H PTT (Actin FS) 29.6 VBG pH POC VBG pCO2 POC VBG pO2 Mixed VBG HCO3 Sodium 133 L Potassium 4.2 Chloride 106 Carbon Dioxide 20 L Anion Gap 8 BUN 25 H Creatinine 1.4 H Creat Clearance w eGFR 48.52 POC Glucometer Random Glucose 129 H Hemoglobin A1c % Lactic Acid Calcium 8.8 Phosphorus 4.2 Magnesium Total Bilirubin 0.6 AST 11 L ALT 14 Alkaline Phosphatase 90 Troponin I Total Protein 6.2 L Albumin 3.4 Vitamin B12 TSH Free T4 Urine Color Urine Appearance Urine pH Ur Specific [place] Urine Protein Urine Glucose (UA) Urine Ketones Urine Blood Urine Nitrite Urine Bilirubin Urine Urobilinogen Ur Leukocyte Esterase Urine WBC (Auto) Urine RBC (Auto) Ur Epithelial Cells Urine Mucus RPR Titer Influenza A (Rapid) Influenza B (Rapid) 07/09/18 07/09/18 07/09/18 10:20 10:20 12:16 WBC RBC Hgb Hct MCV MCH MCHC RDW Plt Count MPV Absolute Neuts (auto) Neutrophils % Lymphocytes % Monocytes % Eosinophils % Basophils % Nucleated RBC % ESR PT with INR INR PTT (Actin FS) VBG pH POC VBG pCO2 POC VBG pO2 Mixed VBG HCO3 Sodium Potassium Chloride Carbon Dioxide Anion Gap BUN Creatinine Creat Clearance w eGFR POC Glucometer 125 Random Glucose Hemoglobin A1c % 6.9 H Lactic Acid Calcium Phosphorus Magnesium Total Bilirubin AST ALT Alkaline Phosphatase Troponin I Total Protein Albumin Vitamin B12 480 TSH 0.96 Free T4 0.92 Urine Color Urine Appearance Urine pH Ur Specific [place] Urine Protein Urine Glucose (UA) Urine Ketones Urine Blood Urine Nitrite Urine Bilirubin Urine Urobilinogen Ur Leukocyte Esterase Urine WBC (Auto) Urine RBC (Auto) Ur Epithelial Cells Urine Mucus RPR Titer Influenza A (Rapid) Influenza B (Rapid) 07/09/18 07/09/18 07/10/18 17:55 21:01 05:50 WBC RBC Hgb Hct MCV MCH MCHC RDW Plt Count MPV Absolute Neuts (auto) Neutrophils % Lymphocytes % Monocytes % Eosinophils % Basophils % Nucleated RBC % ESR 48 H PT with INR INR PTT (Actin FS) VBG pH POC VBG pCO2 POC VBG pO2 Mixed VBG HCO3 Sodium Potassium Chloride Carbon Dioxide Anion Gap BUN Creatinine Creat Clearance w eGFR POC Glucometer 153 160 Random Glucose Hemoglobin A1c % Lactic Acid Calcium Phosphorus Magnesium Total Bilirubin AST ALT Alkaline Phosphatase Troponin I Total Protein Albumin Vitamin B12 TSH Free T4 Urine Color Urine Appearance Urine pH Ur Specific [place] Urine Protein Urine Glucose (UA) Urine Ketones Urine Blood Urine Nitrite Urine Bilirubin Urine Urobilinogen Ur Leukocyte Esterase Urine WBC (Auto) Urine RBC (Auto) Ur Epithelial Cells Urine Mucus RPR Titer Influenza A (Rapid) Influenza B (Rapid) 07/10/18 07/10/18 07/10/18 05:50 05:50 06:26 WBC 9.8 RBC 3.74 L Hgb 11.9 Hct 34.2 L MCV 91.5 MCH 31.9 MCHC 34.9 RDW 13.8 Plt Count 198 MPV 8.4 Absolute Neuts (auto) 7.1 Neutrophils % 72.7 Lymphocytes % 7.6 L D Monocytes % 17.4 H Eosinophils % 1.7 D Basophils % 0.6 Nucleated RBC % 0 ESR PT with INR INR PTT (Actin FS) VBG pH POC VBG pCO2 POC VBG pO2 Mixed VBG HCO3 Sodium 137 Potassium 4.1 Chloride 107 Carbon Dioxide 23 Anion Gap 7 L BUN 25 H Creatinine 1.6 H Creat Clearance w eGFR 41.59 POC Glucometer 124 Random Glucose 121 H Hemoglobin A1c % Lactic Acid Calcium 8.2 L Phosphorus Magnesium Total Bilirubin 0.5 AST 10 L ALT 14 Alkaline Phosphatase 76 Troponin I Total Protein 5.5 L Albumin 2.8 L Vitamin B12 TSH Free T4 Urine Color Urine Appearance Urine pH Ur Specific [place] Urine Protein Urine Glucose (UA) Urine Ketones Urine Blood Urine Nitrite Urine Bilirubin Urine Urobilinogen Ur Leukocyte Esterase Urine WBC (Auto) Urine RBC (Auto) Ur Epithelial Cells Urine Mucus RPR Titer Influenza A (Rapid) Influenza B (Rapid) 07/10/18 07/10/18 07/10/18 11:39 17:05 20:57 WBC RBC Hgb Hct MCV MCH MCHC RDW Plt Count MPV Absolute Neuts (auto) Neutrophils % Lymphocytes % Monocytes % Eosinophils % Basophils % Nucleated RBC % ESR PT with INR INR PTT (Actin FS) VBG pH POC VBG pCO2 POC VBG pO2 Mixed VBG HCO3 Sodium Potassium Chloride Carbon Dioxide Anion Gap BUN Creatinine Creat Clearance w eGFR POC Glucometer 149 164 113 Random Glucose Hemoglobin A1c % Lactic Acid Calcium Phosphorus Magnesium Total Bilirubin AST ALT Alkaline Phosphatase Troponin I Total Protein Albumin Vitamin B12 TSH Free T4 Urine Color Urine Appearance Urine pH Ur Specific [place] Urine Protein Urine Glucose (UA) Urine Ketones Urine Blood Urine Nitrite Urine Bilirubin Urine Urobilinogen Ur Leukocyte Esterase Urine WBC (Auto) Urine RBC (Auto) Ur Epithelial Cells Urine Mucus RPR Titer Influenza A (Rapid) Influenza B (Rapid) 07/11/18 07/11/18 07/11/18 06:27 06:30 06:30 WBC 6.8 RBC 3.53 L Hgb 11.2 L Hct 32.2 L MCV 91.3 MCH 31.8 MCHC 34.9 RDW 13.5 Plt Count 192 MPV 8.6 Absolute Neuts (auto) 4.7 Neutrophils % 69.4 Lymphocytes % 9.2 D Monocytes % 15.0 H Eosinophils % 5.7 H D Basophils % 0.7 Nucleated RBC % 0 ESR PT with INR INR PTT (Actin FS) VBG pH POC VBG pCO2 POC VBG pO2 Mixed VBG HCO3 Sodium 139 Potassium 4.0 Chloride 109 H Carbon Dioxide 21 Anion Gap 9 BUN 23 H Creatinine 1.3 Creat Clearance w eGFR 52.85 POC Glucometer 105 Random Glucose 92 Hemoglobin A1c % Lactic Acid Calcium 8.0 L Phosphorus 3.8 Magnesium 1.9 Total Bilirubin 0.4 AST 16 ALT 15 Alkaline Phosphatase 70 Troponin I Total Protein 5.2 L Albumin 2.5 L Vitamin B12 TSH Free T4 Urine Color Urine Appearance Urine pH Ur Specific [place] Urine Protein Urine Glucose (UA) Urine Ketones Urine Blood Urine Nitrite Urine Bilirubin Urine Urobilinogen Ur Leukocyte Esterase Urine WBC (Auto) Urine RBC (Auto) Ur Epithelial Cells Urine Mucus RPR Titer Influenza A (Rapid) Influenza B (Rapid) 07/11/18 07/11/18 07/11/18 06:30 11:09 16:45 WBC RBC Hgb Hct MCV MCH MCHC RDW Plt Count MPV Absolute Neuts (auto) Neutrophils % Lymphocytes % Monocytes % Eosinophils % Basophils % Nucleated RBC % ESR PT with INR INR PTT (Actin FS) VBG pH POC VBG pCO2 POC VBG pO2 Mixed VBG HCO3 Sodium Potassium Chloride Carbon Dioxide Anion Gap BUN Creatinine Creat Clearance w eGFR POC Glucometer 130 114 Random Glucose Hemoglobin A1c % Lactic Acid Calcium Phosphorus Magnesium Total Bilirubin AST ALT Alkaline Phosphatase Troponin I Total Protein Albumin Vitamin B12 TSH Free T4 Urine Color Urine Appearance Urine pH Ur Specific [place] Urine Protein Urine Glucose (UA) Urine Ketones Urine Blood Urine Nitrite Urine Bilirubin Urine Urobilinogen Ur Leukocyte Esterase Urine WBC (Auto) Urine RBC (Auto) Ur Epithelial Cells Urine Mucus RPR Titer Nonreactive Influenza A (Rapid) Influenza B (Rapid) 07/11/18 07/12/18 07/12/18 21:16 06:00 06:00 WBC 6.5 RBC 3.73 L Hgb 11.8 Hct 34.0 L MCV 90.9 MCH 31.6 MCHC 34.8 RDW 13.3 Plt Count 207 MPV 8.1 Absolute Neuts (auto) 4.5 Neutrophils % 70.3 Lymphocytes % 9.3 Monocytes % 13.2 H Eosinophils % 6.2 H Basophils % 1.0 Nucleated RBC % 0 ESR PT with INR INR PTT (Actin FS) VBG pH POC VBG pCO2 POC VBG pO2 Mixed VBG HCO3 Sodium 135 L Potassium 3.9 Chloride 105 Carbon Dioxide 24 Anion Gap 7 L BUN 17 Creatinine 1.3 Creat Clearance w eGFR 52.85 POC Glucometer 104 Random Glucose 98 Hemoglobin A1c % Lactic Acid Calcium 7.9 L Phosphorus 3.8 Magnesium 1.9 Total Bilirubin 0.4 AST 20 ALT 22 Alkaline Phosphatase 80 Troponin I Total Protein 5.4 L Albumin 2.6 L Vitamin B12 TSH Free T4 Urine Color Urine Appearance Urine pH Ur Specific [place] Urine Protein Urine Glucose (UA) Urine Ketones Urine Blood Urine Nitrite Urine Bilirubin Urine Urobilinogen Ur Leukocyte Esterase Urine WBC (Auto) Urine RBC (Auto) Ur Epithelial Cells Urine Mucus RPR Titer Influenza A (Rapid) Influenza B (Rapid) 07/12/18 07/12/18 07/12/18 06:40 12:03 17:50 WBC RBC Hgb Hct MCV MCH MCHC RDW Plt Count MPV Absolute Neuts (auto) Neutrophils % Lymphocytes % Monocytes % Eosinophils % Basophils % Nucleated RBC % ESR PT with INR INR PTT (Actin FS) VBG pH POC VBG pCO2 POC VBG pO2 Mixed VBG HCO3 Sodium Potassium Chloride Carbon Dioxide Anion Gap BUN Creatinine Creat Clearance w eGFR POC Glucometer 105 101 110 Random Glucose Hemoglobin A1c % Lactic Acid Calcium Phosphorus Magnesium Total Bilirubin AST ALT Alkaline Phosphatase Troponin I Total Protein Albumin Vitamin B12 TSH Free T4 Urine Color Urine Appearance Urine pH Ur Specific [place] Urine Protein Urine Glucose (UA) Urine Ketones Urine Blood Urine Nitrite Urine Bilirubin Urine Urobilinogen Ur Leukocyte Esterase Urine WBC (Auto) Urine RBC (Auto) Ur Epithelial Cells Urine Mucus RPR Titer Influenza A (Rapid) Influenza B (Rapid) 07/12/18 07/13/18 07/13/18 20:50 05:58 06:26 WBC 7.5 RBC 3.97 L Hgb 12.4 Hct 35.7 MCV 90.0 MCH 31.4 MCHC 34.8 RDW 13.2 Plt Count 226 MPV 8.6 Absolute Neuts (auto) 5.6 Neutrophils % 75.3 Lymphocytes % 6.9 L D Monocytes % 11.5 H Eosinophils % 5.6 H Basophils % 0.7 Nucleated RBC % 0 ESR PT with INR INR PTT (Actin FS) VBG pH POC VBG pCO2 POC VBG pO2 Mixed VBG HCO3 Sodium Potassium Chloride Carbon Dioxide Anion Gap BUN Creatinine Creat Clearance w eGFR POC Glucometer 128 100 Random Glucose Hemoglobin A1c % Lactic Acid Calcium Phosphorus Magnesium Total Bilirubin AST ALT Alkaline Phosphatase Troponin I Total Protein Albumin Vitamin B12 TSH Free T4 Urine Color Urine Appearance Urine pH Ur Specific [place] Urine Protein Urine Glucose (UA) Urine Ketones Urine Blood Urine Nitrite Urine Bilirubin Urine Urobilinogen Ur Leukocyte Esterase Urine WBC (Auto) Urine RBC (Auto) Ur Epithelial Cells Urine Mucus RPR Titer Influenza A (Rapid) Influenza B (Rapid) 07/13/18 07/13/18 07/13/18 06:26 12:18 17:26 WBC RBC Hgb Hct MCV MCH MCHC RDW Plt Count MPV Absolute Neuts (auto) Neutrophils % Lymphocytes % Monocytes % Eosinophils % Basophils % Nucleated RBC % ESR PT with INR INR PTT (Actin FS) VBG pH POC VBG pCO2 POC VBG pO2 Mixed VBG HCO3 Sodium 137 Potassium 4.0 Chloride 104 Carbon Dioxide 22 Anion Gap 11 BUN 15 Creatinine 1.3 Creat Clearance w eGFR 52.85 POC Glucometer 135 106 Random Glucose 98 Hemoglobin A1c % Lactic Acid Calcium 8.0 L Phosphorus Magnesium Total Bilirubin 0.5 AST 12 L ALT 21 Alkaline Phosphatase 85 Troponin I Total Protein 5.8 L Albumin 2.8 L Vitamin B12 TSH Free T4 Urine Color Urine Appearance Urine pH Ur Specific [place] Urine Protein Urine Glucose (UA) Urine Ketones Urine Blood Urine Nitrite Urine Bilirubin Urine Urobilinogen Ur Leukocyte Esterase Urine WBC (Auto) Urine RBC (Auto) Ur Epithelial Cells Urine Mucus RPR Titer Influenza A (Rapid) Influenza B (Rapid) 07/13/18 07/14/18 07/14/18 21:13 05:51 06:30 WBC 9.1 RBC 3.96 L Hgb 12.5 Hct 35.8 MCV 90.3 MCH 31.5 MCHC 34.9 RDW 13.5 Plt Count 237 MPV 8.4 Absolute Neuts (auto) 6.7 Neutrophils % 73.8 Lymphocytes % 9.2 D Monocytes % 10.9 H Eosinophils % 5.3 H Basophils % 0.8 Nucleated RBC % 0 ESR PT with INR INR PTT (Actin FS) VBG pH POC VBG pCO2 POC VBG pO2 Mixed VBG HCO3 Sodium Potassium Chloride Carbon Dioxide Anion Gap BUN Creatinine Creat Clearance w eGFR POC Glucometer 116 122 Random Glucose Hemoglobin A1c % Lactic Acid Calcium Phosphorus Magnesium Total Bilirubin AST ALT Alkaline Phosphatase Troponin I Total Protein Albumin Vitamin B12 TSH Free T4 Urine Color Urine Appearance Urine pH Ur Specific [place] Urine Protein Urine Glucose (UA) Urine Ketones Urine Blood Urine Nitrite Urine Bilirubin Urine Urobilinogen Ur Leukocyte Esterase Urine WBC (Auto) Urine RBC (Auto) Ur Epithelial Cells Urine Mucus RPR Titer Influenza A (Rapid) Influenza B (Rapid) 07/14/18 06:30 WBC RBC Hgb Hct MCV MCH MCHC RDW Plt Count MPV Absolute Neuts (auto) Neutrophils % Lymphocytes % Monocytes % Eosinophils % Basophils % Nucleated RBC % ESR PT with INR INR PTT (Actin FS) VBG pH POC VBG pCO2 POC VBG pO2 Mixed VBG HCO3 Sodium 136 Potassium 4.0 Chloride 102 Carbon Dioxide 25 Anion Gap 9 BUN 18 Creatinine 1.3 Creat Clearance w eGFR 52.85 POC Glucometer Random Glucose 106 Hemoglobin A1c % Lactic Acid Calcium 8.5 Phosphorus Magnesium Total Bilirubin 0.5 AST 17 ALT 24 Alkaline Phosphatase 88 Troponin I Total Protein 5.7 L Albumin 2.7 L Vitamin B12 TSH Free T4 Urine Color Urine Appearance Urine pH Ur Specific [place] Urine Protein Urine Glucose (UA) Urine Ketones Urine Blood Urine Nitrite Urine Bilirubin Urine Urobilinogen Ur Leukocyte Esterase Urine WBC (Auto) Urine RBC (Auto) Ur Epithelial Cells Urine Mucus RPR Titer Influenza A (Rapid) Influenza B (Rapid) Active Medications Generic Name Dose Route Start Last Admin Trade Name Freq PRN Reason Stop Dose Admin Acetaminophen 650 mg 07/09/18 09:00 Tylenol - PO Q4H PRN PAIN OR FEVER Amoxicillin/Clavulanate Potassium 1 tab 07/14/18 17:30 Augmentin - 875mg Tablet PO BID@0800,1730 [facility] Aspirin 81 mg 07/09/18 10:00 07/14/18 10:00 Asa - PO 81 mg DAILY ALEXEY Administration Atorvastatin Calcium 20 mg 07/09/18 22:00 07/13/18 21:12 Lipitor - PO 20 mg HS [facility] Administration Cyanocobalamin 1,000 mcg 07/09/18 10:00 07/14/18 10:00 Vitamin B12 - PO 1,000 mcg DAILY ALEXEY Administration Docusate Sodium 100 mg 07/09/18 10:00 07/14/18 10:00 Colace - PO 100 mg DAILY ALEXEY Administration Donepezil HCl 5 mg 07/14/18 22:00 Aricept - PO HS ALEXEY Vancomycin HCl 1,000 mg in 250 mls @ 200 mls/hr 07/09/18 13:30 07/13/18 13:57 Vancomycin (Pre-Docked) IVPB 200 mls/hr Q24H [facility] Administration Protocol Insulin Aspart 1 vial 07/09/18 07:00 07/14/18 06:00 Novolog Vial Sliding Scale - SQ Not Given ACHS [facility] Protocol Metoprolol Succinate 25 mg 07/09/18 10:00 07/14/18 10:00 Toprol Xl - PO 25 mg DAILY [facility] Administration Microbiology 07/08/18 23:00 Blood - Peripheral Venous Blood Culture - Final NO GROWTH AFTER 5 DAYS INCUBATION 07/08/18 23:00 Blood - Peripheral Venous Blood Culture - Final NO GROWTH AFTER 5 DAYS INCUBATION 07/09/18 01:00 Urine - Urine - Catheterized Urine Culture - Final Enterococcus Faecalis 07/09/18 23:00 Urine For Antigen Detection Legionella Antigen - Final 07/09/18 23:00 Urine For Antigen Detection Streptococcus pneumoniae Antigen (M - Final - Home Medications Comprehensive Discharge Medication List: Ambulatory Orders Aspirin [ASA -] 81 mg PO DAILY 07/09/18 Atorvastatin Ca [Lipitor] 20 mg PO HS 07/09/18 Cyanocobalamin (Vitamin B-12) [Vitamin B-12] 1,000 mcg PO DAILY 07/09/18 Docusate Sodium [Colace] 100 mg PO DAILY 07/09/18 Ferrous Sulfate [Iron] 325 mg PO DAILY 07/09/18 Guaifenesin [Robitussin -] 100 mg PO Q4H PRN 07/09/18 Losartan Potassium [Cozaar -] 50 mg PO DAILY 07/09/18 Metformin HCl [Metformin HCl ER] 500 mg PO DAILY 07/09/18 Metoprolol Succinate [Toprol Xl] 25 mg PO DAILY 07/09/18 Rivaroxaban [Xarelto -] 20 mg PO DAILY 07/09/18 <Jo-Ann Canales - Last Filed: 07/14/18 10:50> Current Active Problems SHELBI (acute kidney injury) (Acute) Altered mental status (Acute) Diabetes (Acute) Recurrent falls (Acute) Sepsis (Acute) Sepsis due to urinary tract infection (Acute) Toxic metabolic encephalopathy (Acute) - Home Medications Comprehensive Discharge Medication List: Ambulatory Orders Aspirin [ASA -] 81 mg PO DAILY 07/09/18 Atorvastatin Ca [Lipitor] 20 mg PO HS 07/09/18 Cyanocobalamin (Vitamin B-12) [Vitamin B-12] 1,000 mcg PO DAILY 07/09/18 Docusate Sodium [Colace] 100 mg PO DAILY 07/09/18 Ferrous Sulfate [Iron] 325 mg PO DAILY 07/09/18 Guaifenesin [Robitussin -] 100 mg PO Q4H PRN 07/09/18 Losartan Potassium [Cozaar -] 50 mg PO DAILY 07/09/18 Metformin HCl [Metformin HCl ER] 500 mg PO DAILY 07/09/18 Metoprolol Succinate [Toprol Xl] 25 mg PO DAILY 07/09/18 Rivaroxaban [Xarelto -] 20 mg PO DAILY 07/09/18 <Lee Martinez - Last Filed: 07/15/18 08:52> Condition: Stable - Instructions Diet, Activity, Other Instructions: Patient to follow up with PMD Patient to follow up with Neurology Dr Lafleur Will start Augmentin 875mg twice a day x 7 days return to ER if AMS, fever, chest pain, SOB Referrals: Stefani Dunne MD [Primary Care Provider] - Kush Lafleur MD [Staff Physician] - Disposition: [facility] FACILITY
[2018-07-14] MEDS ORDERED: INSULIN (NOVOLOG) ASPART 100 UNITS/ML 10ML VIAL ONE (11:33)
[2018-07-14] MEDS: VANCOMYCIN 1 GRAM (PRE-DOCKED) 1,000 MG/250 ML BAG IVPB SCH (13:16)
--- NOTE | 2018-07-14 13:22 | PN ---
Progress Note (short form) - Note Progress Note: Renal follow up for SHELBI Pt seen and examined at the bedside awake and alert offers no acute complaints no sob, chest pain, abd pain, N/V/D Vital Signs Temperature 98.3 F 07/14/18 10:00 Pulse Rate 84 07/14/18 10:00 Respiratory Rate 18 07/14/18 10:00 Blood Pressure 131/75 07/14/18 10:00 O2 Sat by Pulse Oximetry (%) 96 07/13/18 21:00 Intake & Output 07/11/18 07/12/18 07/13/18 07/14/18 23:59 23:59 23:59 23:59 Intake Total 1795 2140 1000 530 Balance 1795 2140 1000 530 NAD No LE edema no bladder distension CBC, BMP 07/14/18 06:30 07/14/18 06:30 Current Medications Acetaminophen (Tylenol -) 650 mg PO Q4H PRN PRN Reason: PAIN OR FEVER Amoxicillin/Clavulanate Potassium (Augmentin - 875mg Tablet) 1 tab PO BID@0800, 1730 [facility] Aspirin (Asa -) 81 mg PO DAILY [facility] Last Admin: 07/14/18 10:00 Dose: 81 mg Atorvastatin Calcium (Lipitor -) 20 mg PO HS [facility] Last Admin: 07/13/18 21:12 Dose: 20 mg Cyanocobalamin (Vitamin B12 -) 1,000 mcg PO DAILY [facility] Last Admin: 07/14/18 10:00 Dose: 1,000 mcg Docusate Sodium (Colace -) 100 mg PO DAILY [facility] Last Admin: 07/14/18 10:00 Dose: 100 mg Donepezil HCl (Aricept -) 5 mg PO [facility] Vancomycin HCl (Vancomycin (Pre-Docked)) 1,000 mg in 250 mls @ 200 mls/hr IVPB Q24H [facility]; Protocol Last Admin: 07/14/18 13:16 Dose: Not Given Insulin Aspart (Novolog Vial Sliding Scale -) 1 vial SQ ACHS [facility]; Protocol Last Admin: 07/14/18 11:39 Dose: 2 units Metoprolol Succinate (Toprol Xl -) 25 mg PO DAILY [facility] Last Admin: 07/14/18 10:00 Dose: 25 mg 83 year old gentleman with hx of DM, HLD, Afib not on A/C, HTN, PE who presented with fever from Rehab and found to have Cr of 1.4-1.6. #SHELBI (Baseline Cr 1.[address] [facility] records) #Fever #Hypertension #Afib not on A/C #Hx of PE Renal function appears stable off IVF oral intake of fluids and solutes as tolerated Continue metoprolol as BP is at goal Abx as per primary team discharge planning as per primary Kishor Beltre DO
--- NOTE | 2018-07-14 13:59 | PN ---
Progress Note, Physician History of Present Illness: MORE ALERT AND RESPONSIVE DENIES PAIN DENIES DYSURIA TEMPS DOWN AFEBRILE WBC IMPROVED WNL BC (-) URINE C/S ENTEROCOCCUS CT CHEST ATELECTASIS - Current Medication List Current Medications: Active Medications Acetaminophen (Tylenol -) 650 mg PO Q4H PRN PRN Reason: PAIN OR FEVER Aspirin (Asa -) 81 mg PO DAILY COUNTS [facility]CLUDE 234 BEDS AT THE [facility] Last Admin: 07/14/18 10:00 Dose: 81 mg Atorvastatin Calcium (Lipitor -) 20 mg PO HS COUNTS INCLUDE 234 BEDS AT THE [facility] Last Admin: 07/13/18 21:12 Dose: 20 mg Cyanocobalamin (Vitamin B12 -) 1,000 mcg PO DAILY COUNTS INCLUDE 234 BEDS AT THE [facility] Last Admin: 07/14/18 10:00 Dose: 1,000 mcg Docusate Sodium (Colace -) 100 mg PO DAILY COUNTS INCLUDE 234 BEDS AT THE [facility] Last Admin: 07/14/18 10:00 Dose: 100 mg Donepezil HCl (Aricept -) 5 mg PO HS COUNTS INCLUDE 234 BEDS AT THE [facility] Insulin Aspart (Novolog Vial Sliding Scale -) 1 vial SQ ACHS COUNTS INCLUDE 234 BEDS AT THE [facility]; Protocol Last Admin: 07/14/18 11:39 Dose: 2 units Metoprolol Succinate (Toprol Xl -) 25 mg PO DAILY COUNTS INCLUDE 234 BEDS AT THE [facility] Last Admin: 07/14/18 10:00 Dose: 25 mg - Objective Vital Signs: Vital Signs Temperature 98.3 F 07/14/18 10:00 Pulse Rate 84 07/14/18 10:00 Respiratory Rate 18 07/14/18 10:00 Blood Pressure 131/75 07/14/18 10:00 O2 Sat by Pulse Oximetry (%) 96 07/13/18 21:00 Constitutional: Yes: No Distress Cardiovascular: Yes: Regular Rate and Rhythm, S1, S2 Respiratory: Yes: Diminished Gastrointestinal: Yes: Normal Bowel Sounds, Soft. No: Tenderness Labs: CBC, BMP 07/14/18 06:30 07/14/18 06:30 INR, PTT INR 1.40 (0.83-1.09) H 07/09/18 08:03 Assessment/Plan FEVER/ LEUKOCYTOSIS IMPROVED TOXIC METABOLIC ENCEPHALOPATHY AZOTEMIA SUBSTITUTE AUGMENTIN 875MG PO BID X7D
[2018-07-14] MEDS ORDERED: AMOX TR/POT CLAV 875MG/125MG TABLETS (FP) PO SCH (17:30)
[2018-07-14] MEDS: AMOX TR/POT CLAV 875MG/125MG TABLETS (FP) PO SCH (18:30)
[2018-07-14] MEDS: RIVAROXABAN 20 MG TABLET PO SCH (18:30)
[2018-07-14] MEDS: ATORVASTATIN CA 20 MG TABLET (FP) PO SCH (22:05)
[2018-07-14] MEDS: DONEPEZIL HCL 5 MG TABLET (FP) PO SCH (22:05)
[2018-07-15] MEDS: INSULIN SLIDING SCALE (NOVOLOG) 1 VIAL SQ SCH ×4 (07:00→22:05)
--- NOTE | 2018-07-15 08:37 | PN ---
Progress Note, Physician Chief Complaint: EVENTS AND NOTES REVIEWED PATIENT AWAKE WEAK/LETHARGIC - Current Medication List Current Medications: Active Medications Acetaminophen (Tylenol -) 650 mg PO Q4H PRN PRN Reason: PAIN OR FEVER Amoxicillin/Clavulanate Potassium (Augmentin - 875mg Tablet) 1 tab PO BID@0800, 1730 [facility] Last Admin: 07/14/18 18:30 Dose: 1 tab Aspirin (Asa -) 81 mg PO DAILY [facility] Last Admin: 07/14/18 10:00 Dose: 81 mg Atorvastatin Calcium (Lipitor -) 20 mg PO [facility] Last Admin: 07/14/18 22:05 Dose: 20 mg Cyanocobalamin (Vitamin B12 -) 1,000 mcg PO DAILY [facility] Last Admin: 07/14/18 10:00 Dose: 1,000 mcg Docusate Sodium (Colace -) 100 mg PO DAILY [facility] Last Admin: 07/14/18 10:00 Dose: 100 mg Donepezil HCl (Aricept -) 5 mg PO [facility] Last Admin: 07/14/18 22:05 Dose: 5 mg Insulin Aspart (Novolog Vial Sliding Scale -) 1 vial SQ [facility]; Protocol Last Admin: 07/15/18 07:00 Dose: Not Given Metoprolol Succinate (Toprol Xl -) 25 mg PO DAILY [facility] Last Admin: 07/14/18 10:00 Dose: 25 mg Rivaroxaban (Xarelto -) 20 mg PO DAILY@1800 [facility] Last Admin: 07/14/18 18:30 Dose: 20 mg - Objective Vital Signs: Vital Signs Temperature 97.9 F 07/15/18 08:04 Pulse Rate 66 07/15/18 08:04 Respiratory Rate 20 07/15/18 08:04 Blood Pressure 115/73 07/15/18 08:04 O2 Sat by Pulse Oximetry (%) 96 07/14/18 09:00 Constitutional: Yes: Mild Distress Eyes: Yes: WNL HENT: Yes: WNL Neck: Yes: WNL Cardiovascular: Yes: Regular Rate and Rhythm Respiratory: Yes: WNL Gastrointestinal: Yes: WNL Extremities: Yes: WNL Edema: No Peripheral Pulses WNL: Yes Integumentary: Yes: WNL, Onychomycosis Wound/Incision: Yes: Clean/Dry Neurological: Yes: Pre-Existing Deficit, Weakness ...Motor Strength: LLE, RLE Psychiatric: Yes: Other Labs: CBC, BMP 07/14/18 06:30 07/14/18 06:30 INR, PTT INR 1.40 (0.83-1.09) H 07/09/18 08:03 Problem List - Problems (1) Sepsis due to urinary tract infection Code(s): A41.9 - SEPSIS, UNSPECIFIED ORGANISM; N39.0 - URINARY TRACT INFECTION, SITE NOT SPECIFIED (2) Altered mental status Code(s): R41.82 - ALTERED MENTAL STATUS, UNSPECIFIED (3) Diabetes Code(s): E11.9 - TYPE 2 DIABETES MELLITUS WITHOUT COMPLICATIONS (4) Sepsis Code(s): A41.9 - SEPSIS, UNSPECIFIED ORGANISM Qualifiers: Sepsis type: sepsis due to unspecified organism Qualified Code(s): A41.9 - Sepsis, unspecified organism (5) Toxic metabolic encephalopathy Code(s): G92 - TOXIC ENCEPHALOPATHY (6) Brain ischemia Code(s): I67.82 - CEREBRAL ISCHEMIA (7) History of CVA (cerebrovascular accident) Code(s): Z86.73 - PRSNL HX OF TIA (TIA), AND CEREB INFRC W/O RESID DEFICITS Assessment/Plan STOP DISCHARGE BRAIN MRI NIGHTHAWK REVEALED BRAIN ISCHEMIA START XARELTO/ASA/LIPITOR CHECK LIPID PANEL PT EVAL FALL RISKS NEURO CHECKS DISCUSSED WITH DAUGHTER
[2018-07-15] MEDS ORDERED: PT OWN MED DRAWER 7, Y5N ONE (09:19)
[2018-07-15] MEDS: DOCUSATE SODIUM 100 MG CAPSULE (FP) PO SCH (09:57)
[2018-07-15] MEDS: metoPROLOL SUCCINATE 25 MG TAB.SR.24H (FP) PO SCH (09:57)
[2018-07-15] MEDS: AMOX TR/POT CLAV 875MG/125MG TABLETS (FP) PO SCH ×2 (09:57→17:30)
[2018-07-15] MEDS: CYANOCOBALAMIN 1,000 MCG TABLET (FP) PO SCH (09:58)
[2018-07-15] MEDS: ASPIRIN 81 MG CHEWABLE TABLETS PO SCH (09:58)
[2018-07-15] MEDS ORDERED: INSULIN (NOVOLOG) ASPART 100 UNITS/ML 10ML VIAL ONE (10:43)
[2018-07-15 10:57] LABS: CHOLESTEROL 138 mg/dL (50-200); HDL CHOLESTEROL 26 mg/dL (40-60); TRIGLYCERIDES 176 mg/dL (0-150)
--- NOTE | 2018-07-15 14:24 | PN ---
Progress Note, Physician Chief Complaint: The patient seen in his bed. Comfortable. Denies any new pains. No shortness of breath. Maintains good urine output History of Present Illness: 83 year old gentleman with hx of DM, HLD, Afib not on A/C, HTN, PE who presented with fever from Rehab and found to have Cr of 1.4-1.6. Renal functions have improved towards baseline since admsission. - Current Medication List Current Medications: Active Medications Acetaminophen (Tylenol -) 650 mg PO Q4H PRN PRN Reason: PAIN OR FEVER Amino Acids (Prosource No Carb Liquid Pkt) 30 ml PO BID@0800,1730 [facility] Amoxicillin/Clavulanate Potassium (Augmentin - 875mg Tablet) 1 tab PO BID@0800, 1730 [facility] Last Admin: 07/15/18 09:57 Dose: 1 tab Aspirin (Asa -) 81 mg PO DAILY [facility] Last Admin: 07/15/18 09:58 Dose: 81 mg Atorvastatin Calcium (Lipitor -) 20 mg PO [facility] Last Admin: 07/14/18 22:05 Dose: 20 mg Cyanocobalamin (Vitamin B12 -) 1,000 mcg PO DAILY [facility] Last Admin: 07/15/18 09:58 Dose: 1,000 mcg Docusate Sodium (Colace -) 100 mg PO DAILY [facility] Last Admin: 07/15/18 09:57 Dose: 100 mg Donepezil HCl (Aricept -) 5 mg PO [facility] Last Admin: 07/14/18 22:05 Dose: 5 mg Insulin Aspart (Novolog Vial Sliding Scale -) 1 vial SQ [facility]; Protocol Last Admin: 07/15/18 11:21 Dose: Not Given Metoprolol Succinate (Toprol Xl -) 25 mg PO DAILY [facility] Last Admin: 07/15/18 09:57 Dose: 25 mg Rivaroxaban (Xarelto -) 20 mg PO DAILY@1800 [facility] Last Admin: 07/14/18 18:30 Dose: 20 mg - Objective Vital Signs: Vital Signs Temperature 97.9 F 07/15/18 08:04 Pulse Rate 66 07/15/18 08:04 Respiratory Rate 20 07/15/18 08:04 Blood Pressure 115/73 07/15/18 08:04 O2 Sat by Pulse Oximetry (%) 96 07/14/18 09:00 Constitutional: Yes: Anxious Eyes: Yes: Conjunctiva Clear HENT: Yes: Atraumatic Neck: Yes: Trachea Midline Cardiovascular: Yes: Regular Rate and Rhythm, S1, S2 Respiratory: Yes: CTA Bilaterally Gastrointestinal: Yes: Normal Bowel Sounds, Soft Genitourinary: No: Bladder Distention, CVA Tenderness - Left, CVA Tenderness - Right Labs: CBC, BMP 07/14/18 06:30 07/14/18 06:30 INR, PTT INR 1.40 (0.83-1.09) H 07/09/18 08:03 Assessment/Plan 83 year old gentleman with hx of DM, HLD, Afib not on A/C, HTN, PE who was admitted with fever from Rehab and found to have Cr of 1.4-1.6. The patient's clinical status has improved. amintains good urine output. Last Serum Cr 1.3mg/dL Will monitor the renal functions with you. will maintain euvolemia. Thank you. Will follow with you. Mica Cordon MD
[2018-07-15] MEDS: RIVAROXABAN 20 MG TABLET PO SCH (17:30)
[2018-07-15] MEDS: AMINO ACIDS/PROTEIN HYDROLYS 30 ML LIQUID.PKT PO SCH (17:31)
[2018-07-15] MEDS: DONEPEZIL HCL 5 MG TABLET (FP) PO SCH (22:05)
[2018-07-15] MEDS: ATORVASTATIN CA 20 MG TABLET (FP) PO SCH (22:05)
[2018-07-16] MEDS: INSULIN SLIDING SCALE (NOVOLOG) 1 VIAL SQ SCH ×4 (06:07→22:33)
[2018-07-16 08:22] LABS: ALBUMIN 2.7 g/dl (3.4-5.0); ALK PHOS 87 U/L (45-117); ANION GAP 10 MMOL/L (8-16); BILIRUBIN,TOTAL 0.3 mg/dL (0.2-1); BLOOD UREA NITROGEN 25 mg/dL (7-18); CALCIUM 8.3 mg/dL (8.5-10.1); CHLORIDE 102 mmol/L (98-107); CO2 26 mmol/L (21-32); CREATININE 1.5 mg/dL (0.55-1.3); GLUCOSE,RANDOM 107 mg/dL (74-106); SGOT/AST 16 U/L (15-37); SGPT/ALT 30 U/L (13-61); SODIUM 137 mmol/L (136-145); TOT PROT 6.7 g/dl (6.4-8.2)
[2018-07-16] MEDS: AMINO ACIDS/PROTEIN HYDROLYS 30 ML LIQUID.PKT PO SCH ×2 (09:31→17:46)
[2018-07-16] MEDS: AMOX TR/POT CLAV 875MG/125MG TABLETS (FP) PO SCH ×2 (09:31→17:46)
[2018-07-16] MEDS: ASPIRIN 81 MG CHEWABLE TABLETS PO SCH (09:32)
[2018-07-16] MEDS: DOCUSATE SODIUM 100 MG CAPSULE (FP) PO SCH (09:36)
--- NOTE | 2018-07-16 09:36 | PN ---
Progress Note, Physician Chief Complaint: AWAKE MORE ALERT STILL HAVING SOME SPEECH DIFFICULTY DAUGHTER BEDSIDE - Current Medication List Current Medications: Active Medications Acetaminophen (Tylenol -) 650 mg PO Q4H PRN PRN Reason: PAIN OR FEVER Amino Acids (Prosource No Carb Liquid Pkt) 30 ml PO BID@0800,1730 [facility] Last Admin: 07/15/18 17:31 Dose: 30 ml Amoxicillin/Clavulanate Potassium (Augmentin - 875mg Tablet) 1 tab PO BID@0800, 1730 [facility] Last Admin: 07/15/18 17:30 Dose: 1 tab Aspirin (Asa -) 81 mg PO DAILY [facility] Last Admin: 07/15/18 09:58 Dose: 81 mg Atorvastatin Calcium (Lipitor -) 20 mg PO [facility] Last Admin: 07/15/18 22:05 Dose: 20 mg Cyanocobalamin (Vitamin B12 -) 1,000 mcg PO DAILY [facility] Last Admin: 07/15/18 09:58 Dose: 1,000 mcg Docusate Sodium (Colace -) 100 mg PO DAILY [facility] Last Admin: 07/15/18 09:57 Dose: 100 mg Donepezil HCl (Aricept -) 5 mg PO [facility] Last Admin: 07/15/18 22:05 Dose: 5 mg Insulin Aspart (Novolog Vial Sliding Scale -) 1 vial SQ [facility]; Protocol Last Admin: 07/16/18 06:07 Dose: Not Given Metoprolol Succinate (Toprol Xl -) 25 mg PO DAILY [facility] Last Admin: 07/15/18 09:57 Dose: 25 mg Rivaroxaban (Xarelto -) 20 mg PO DAILY@1800 [facility] Last Admin: 07/15/18 17:30 Dose: 20 mg - Objective Vital Signs: Vital Signs Temperature 98.1 F 07/16/18 06:46 Pulse Rate 70 07/16/18 06:46 Respiratory Rate 20 07/16/18 06:46 Blood Pressure 122/72 07/16/18 06:46 O2 Sat by Pulse Oximetry (%) 95 07/15/18 22:05 Constitutional: Yes: Mild Distress Eyes: Yes: WNL HENT: Yes: WNL Neck: Yes: WNL Cardiovascular: Yes: Pulse Irregular Respiratory: Yes: Regular Gastrointestinal: Yes: WNL Genitourinary: Yes: Incontinence Musculoskeletal: Yes: Muscle Weakness Edema: No Peripheral Pulses WNL: Yes Integumentary: Yes: WNL Wound/Incision: Yes: Clean/Dry Neurological: Yes: Confusion, Loss of Sensation, Weakness ...Motor Strength: LLE, RLE Labs: CBC, BMP 07/14/18 06:30 07/16/18 06:10 INR, PTT INR 1.40 (0.83-1.09) H 07/09/18 08:03 Problem List - Problems (1) Sepsis due to urinary tract infection Code(s): A41.9 - SEPSIS, UNSPECIFIED ORGANISM; N39.0 - URINARY TRACT INFECTION, SITE NOT SPECIFIED (2) Altered mental status Code(s): R41.82 - ALTERED MENTAL STATUS, UNSPECIFIED (3) Diabetes Code(s): E11.9 - TYPE 2 DIABETES MELLITUS WITHOUT COMPLICATIONS (4) Sepsis Code(s): A41.9 - SEPSIS, UNSPECIFIED ORGANISM Qualifiers: Sepsis type: sepsis due to unspecified organism Qualified Code(s): A41.9 - Sepsis, unspecified organism (5) Toxic metabolic encephalopathy Code(s): G92 - TOXIC ENCEPHALOPATHY (6) Brain ischemia Code(s): I67.82 - CEREBRAL ISCHEMIA (7) History of CVA (cerebrovascular accident) Code(s): Z86.73 - PRSNL HX OF TIA (TIA), AND CEREB INFRC W/O RESID DEFICITS Assessment/Plan STOP DISCHARGE BRAIN MRI NIGHTHAWK REVEALED BRAIN ISCHEMIA START XARELTO/ASA/LIPITOR CHECK LIPID PANEL PT EVAL FALL RISKS NEURO CHECKS DISCUSSED WITH MYRIAM BROWN OR [facility]
[2018-07-16] MEDS: metoPROLOL SUCCINATE 25 MG TAB.SR.24H (FP) PO SCH (09:37)
[2018-07-16] MEDS: CYANOCOBALAMIN 1,000 MCG TABLET (FP) PO SCH (09:39)
--- NOTE | 2018-07-16 11:46 | PN ---
Progress Note, Physician Chief Complaint: The patient seen and examined while sitting out of bed. Comfortable. Denies any new pains. No shortness of breath. Maintains good urine output History of Present Illness: 83 year old gentleman with hx of DM, HLD, Afib not on A/C, HTN, PE who presented with fever from Rehab and found to have elevated Serum Cr. - Current Medication List Current Medications: Active Medications Acetaminophen (Tylenol -) 650 mg PO Q4H PRN PRN Reason: PAIN OR FEVER Amino Acids (Prosource No Carb Liquid Pkt) 30 ml PO BID@0800,1730 [facility] Last Admin: 07/16/18 09:31 Dose: 30 ml Amoxicillin/Clavulanate Potassium (Augmentin - 875mg Tablet) 1 tab PO BID@0800, 1730 [facility] Last Admin: 07/16/18 09:31 Dose: 1 tab Aspirin (Asa -) 81 mg PO DAILY [facility] Last Admin: 07/16/18 09:32 Dose: 81 mg Atorvastatin Calcium (Lipitor -) 20 mg PO [facility] Last Admin: 07/15/18 22:05 Dose: 20 mg Cyanocobalamin (Vitamin B12 -) 1,000 mcg PO DAILY [facility] Last Admin: 07/16/18 09:39 Dose: 1,000 mcg Docusate Sodium (Colace -) 100 mg PO DAILY [facility] Last Admin: 07/16/18 09:36 Dose: 100 mg Donepezil HCl (Aricept -) 5 mg PO [facility] Last Admin: 07/15/18 22:05 Dose: 5 mg Insulin Aspart (Novolog Vial Sliding Scale -) 1 vial SQ [facility]; Protocol Last Admin: 07/16/18 11:27 Dose: Not Given Metoprolol Succinate (Toprol Xl -) 25 mg PO DAILY [facility] Last Admin: 07/16/18 09:37 Dose: 25 mg Rivaroxaban (Xarelto -) 20 mg PO DAILY@1800 [facility] Last Admin: 07/15/18 17:30 Dose: 20 mg - Objective Vital Signs: Vital Signs Temperature 98 F 07/16/18 10:00 Pulse Rate 78 07/16/18 10:00 Respiratory Rate 18 07/16/18 10:00 Blood Pressure 117/69 07/16/18 10:00 O2 Sat by Pulse Oximetry (%) 95 07/15/18 22:05 Constitutional: Yes: No Distress, Anxious Eyes: Yes: Conjunctiva Clear HENT: Yes: Atraumatic Neck: Yes: Trachea Midline Cardiovascular: Yes: Regular Rate and Rhythm, S1, S2 Respiratory: Yes: CTA Bilaterally, Diminished Gastrointestinal: Yes: Normal Bowel Sounds, Soft Labs: CBC, BMP 07/14/18 06:30 07/16/18 06:10 INR, PTT INR 1.40 (0.83-1.09) H 07/09/18 08:03 Assessment/Plan 83 year old gentleman with hx of DM, HLD, Afib not on A/C, HTN, PE who was admitted with fever from Rehab and abnorma l kidney functions. The patient's clinical status has improved. maintains good urine output. Last Serum Cr 1.5mg/dL. Was 1.3 yesterday. ? Volume. Will monitor the renal functions with you. Will maintain euvolemia. Thank you. Will follow with you. Mica Cordon MD
[2018-07-16 17:13] LABS: BASO % 1.3 % (0-2.0); EOS % 4.8 % (0-4.5); HEMATOCRIT 40.5 % (35.4-49); HEMOGLOBIN 13.8 GM/dL (11.7-16.9); LYMPH % 14.1 % (8-40); MCH 31.8 pg (25.7-33.7); MCHC 34.2 g/dl (32.0-35.9); MEAN CELL VOLUME 93.2 fl (80-96); MEAN PLT VOLUME 8.1 fl (7.5-11.1); MONO % 11.9 % (3.8-10.2); NEUT % 67.9 % (42.8-82.8); PLATELET COUNT 310 K/MM3 (134-434); RBC 4.35 M/mm3 (4.00-5.60); RDW 13.6 % (11.9-15.9); WHITE BLOOD COUNT 10.9 K/mm3 (4.0-10.0)
[2018-07-16] MEDS: RIVAROXABAN 20 MG TABLET PO SCH (17:46)
[2018-07-16] MEDS: ATORVASTATIN CA 20 MG TABLET (FP) PO SCH (22:31)
[2018-07-16] MEDS: DONEPEZIL HCL 5 MG TABLET (FP) PO SCH (22:32)
[2018-07-17] MEDS: INSULIN SLIDING SCALE (NOVOLOG) 1 VIAL SQ SCH ×4 (06:36→21:13)
[2018-07-17] MEDS: AMOX TR/POT CLAV 875MG/125MG TABLETS (FP) PO SCH ×2 (09:41→17:41)
[2018-07-17] MEDS: CYANOCOBALAMIN 1,000 MCG TABLET (FP) PO SCH (09:41)
[2018-07-17] MEDS: AMINO ACIDS/PROTEIN HYDROLYS 30 ML LIQUID.PKT PO SCH ×2 (09:41→17:41)
[2018-07-17] MEDS: ASPIRIN 81 MG CHEWABLE TABLETS PO SCH (09:42)
[2018-07-17] MEDS: metoPROLOL SUCCINATE 25 MG TAB.SR.24H (FP) PO SCH (09:42)
[2018-07-17] MEDS: DOCUSATE SODIUM 100 MG CAPSULE (FP) PO SCH (09:42)
--- NOTE | 2018-07-17 12:05 | PN ---
Progress Note (short form) - Note Progress Note: Renal follow up for SHELBI Pt seen and examined at the bedside no acute complaints no sob, cp, abd pain making urine Vital Signs Temperature 97.9 F 07/17/18 06:00 Pulse Rate 74 07/17/18 06:00 Respiratory Rate 18 07/17/18 06:00 Blood Pressure 137/73 07/17/18 06:00 O2 Sat by Pulse Oximetry (%) 95 07/16/18 20:08 NAD No LE edema no bladder distension CBC, BMP 07/16/18 17:00 07/16/18 06:10 Current Medications Acetaminophen (Tylenol -) 650 mg PO Q4H PRN PRN Reason: PAIN OR FEVER Amino Acids (Prosource No Carb Liquid Pkt) 30 ml PO BID@0800,1730 [facility] Last Admin: 07/17/18 09:41 Dose: 30 ml Amoxicillin/Clavulanate Potassium (Augmentin - 875mg Tablet) 1 tab PO BID@0800, 1730 [facility] Last Admin: 07/17/18 09:41 Dose: 1 tab Aspirin (Asa -) 81 mg PO DAILY [facility] Last Admin: 07/17/18 09:42 Dose: 81 mg Atorvastatin Calcium (Lipitor -) 20 mg PO [facility] Last Admin: 07/16/18 22:31 Dose: 20 mg Cyanocobalamin (Vitamin B12 -) 1,000 mcg PO DAILY [facility] Last Admin: 07/17/18 09:41 Dose: 1,000 mcg Docusate Sodium (Colace -) 100 mg PO DAILY [facility] Last Admin: 07/17/18 09:42 Dose: 100 mg Donepezil HCl (Aricept -) 5 mg PO [facility] Last Admin: 07/16/18 22:32 Dose: 5 mg Insulin Aspart (Novolog Vial Sliding Scale -) 1 vial SQ A[facility]S [facility]; Protocol Last Admin: 07/17/18 06:36 Dose: Not Given Metoprolol Succinate (Toprol Xl -) 25 mg PO DAILY [facility] Last Admin: 07/17/18 09:42 Dose: 25 mg Rivaroxaban (Xarelto -) 20 mg PO DAILY@1800 [facility] Last Admin: 07/16/18 17:46 Dose: 20 mg 83 year old gentleman with hx of DM, HLD, Afib not on A/C, HTN, PE who presented with fever from Rehab and found to have Cr of 1.4-1.6. #SHELBI (Baseline Cr 1.[address] [facility] records) #Fever #Hypertension #Afib not on A/C #Hx of PE Cr lolis to 1.5 as of yesterday, no new labs today check BMP in am continue oral intake avoid nephrotoxins trend renal function and electrolytes Kishor Beltre DO
[2018-07-17 14:22] LABS: ALBUMIN 2.9 g/dl (3.4-5.0); ALK PHOS 88 U/L (45-117); ANION GAP 9 MMOL/L (8-16); BILIRUBIN,TOTAL 0.2 mg/dL (0.2-1); BLOOD UREA NITROGEN 30 mg/dL (7-18); CALCIUM 8.3 mg/dL (8.5-10.1); CHLORIDE 99 mmol/L (98-107); CO2 26 mmol/L (21-32); CREATININE 1.3 mg/dL (0.55-1.3); GLUCOSE,RANDOM 156 mg/dL (74-106); POTASSIUM 4.2 mmol/L (3.5-5.1); SGOT/AST 13 U/L (15-37); SGPT/ALT 25 U/L (13-61); SODIUM 134 mmol/L (136-145); TOT PROT 6.5 g/dl (6.4-8.2)
--- NOTE | 2018-07-17 15:02 | PN ---
Progress Note, Physician Chief Complaint: Sepsis AMS History of Present Illness: Previous notes and events reviewed awake and alert but confused NAD WBC 10.9 patient is pending discharge to SNF for rehab - Current Medication List Current Medications: Active Medications Acetaminophen (Tylenol -) 650 mg PO Q4H PRN PRN Reason: PAIN OR FEVER Amino Acids (Prosource No Carb Liquid Pkt) 30 ml PO BID@0800,1730 [facility] Last Admin: 07/17/18 09:41 Dose: 30 ml Amoxicillin/Clavulanate Potassium (Augmentin - 875mg Tablet) 1 tab PO BID@0800, 1730 [facility] Last Admin: 07/17/18 09:41 Dose: 1 tab Aspirin (Asa -) 81 mg PO DAILY [facility] Last Admin: 07/17/18 09:42 Dose: 81 mg Atorvastatin Calcium (Lipitor -) 20 mg PO HS [facility] Last Admin: 07/16/18 22:31 Dose: 20 mg Cyanocobalamin (Vitamin B12 -) 1,000 mcg PO DAILY [facility] Last Admin: 07/17/18 09:41 Dose: 1,000 mcg Docusate Sodium (Colace -) 100 mg PO DAILY [facility] Last Admin: 07/17/18 09:42 Dose: 100 mg Donepezil HCl (Aricept -) 5 mg PO [facility] Last Admin: 07/16/18 22:32 Dose: 5 mg Insulin Aspart (Novolog Vial Sliding Scale -) 1 vial SQ [facility]; Protocol Last Admin: 07/17/18 12:10 Dose: Not Given Metoprolol Succinate (Toprol Xl -) 25 mg PO DAILY [facility] Last Admin: 07/17/18 09:42 Dose: 25 mg Rivaroxaban (Xarelto -) 20 mg PO DAILY@1800 [facility] Last Admin: 07/16/18 17:46 Dose: 20 mg - Objective Vital Signs: Vital Signs Temperature 97.9 F 07/17/18 06:00 Pulse Rate 74 07/17/18 06:00 Respiratory Rate 18 07/17/18 06:00 Blood Pressure 137/73 07/17/18 06:00 O2 Sat by Pulse Oximetry (%) 95 07/16/18 20:08 Constitutional: Yes: No Distress, Calm Eyes: Yes: Conjunctiva Clear HENT: Yes: Atraumatic Cardiovascular: Yes: Regular Rate and Rhythm Respiratory: Yes: Regular, CTA Bilaterally Gastrointestinal: Yes: Normal Bowel Sounds, Soft, Other (non-tender) Musculoskeletal: Yes: Muscle Weakness Extremities: Yes: WNL Edema: No Neurological: Yes: Alert, Pre-Existing Deficit Psychiatric: Yes: Alert Labs: CBC, BMP 07/16/18 17:00 07/17/18 13:28 INR, PTT INR 1.40 (0.83-1.09) H 07/09/18 08:03 Problem List - Problems (1) SHELBI (acute kidney injury) Assessment/Plan: -renal on board -current BUN/Cr 30/1.5 will continue to monitor -Renal US: bilateral renal cysts, possible nonobstructing calculus right kidney Code(s): N17.9 - ACUTE KIDNEY FAILURE, UNSPECIFIED (2) Altered mental status Assessment/Plan: -neurology on board -MRI Brain 2 small subcenterimeter acute nonhemorrhagic infarctionsin the left frontal lobeand in the right parietal lobe adjacent to the posterior horn of right lateral ventricle -fall precaution -neuro checks -Head CT: no acute bleed or mass or fracture, no CT evidence of acute infarct -will start on Donepezil 5mg daily Code(s): R41.82 - ALTERED MENTAL STATUS, UNSPECIFIED (3) Diabetes Assessment/Plan: -HgA1c 6.9% -BGM ACHS -ISS -diabetic diet Code(s): E11.9 - TYPE 2 DIABETES MELLITUS WITHOUT COMPLICATIONS (4) Recurrent falls Assessment/Plan: -PT eval -fall precaution -return to SNF on discharge for rehab Code(s): R29.6 - REPEATED FALLS (5) Sepsis Assessment/Plan: -ID on board -completed ABT, will monitor off antibiotics -tylenol 65omg PO prn for temp >100F -UC positive for group D strep or enterococcus -BC neg -currently afebrile and wbc 10.9 Code(s): A41.9 - SEPSIS, UNSPECIFIED ORGANISM Qualifiers: Sepsis type: sepsis due to unspecified organism Qualified Code(s): A41.9 - Sepsis, unspecified organism Assessment/Plan see problem list dvt ppx
--- NOTE | 2018-07-17 16:46 | PN ---
Progress Note (short form) - Note Progress Note: NEUROLOGY PROGRESS: Events reviewed and discussed with staff and with Dr. Michelle tyler AM. Brain MRI (reviewed): Mod atrophy, extensive scattered microvascular changes with B/L cerebral infarcts (chronic). Unchanged from study at [facility] 2 wks [employer]. Carotid duplex: no significant stenosis Switched from zoysn to Amoxicillin (07/14/18). Started on donepezil 5 mg. WBC 6.5K-> 10.9 Na 137-> 134 Today patient c/o rash all over body. AGUSTIN: Scratches noted on legs, arms, abdomen, back. Patches of salmon colored plaques on forearms. NEURO: Ox "[place]." June corrected to 1618. TRUMP. Poor reversals. Full nugent. Gag ok. + glabella Min left drift. Normal grasps. Areflexic in legs but AJ's present B/ L. Unable to raise to seated position. IMP: Moderately severe, B/L cerebral dysfunction (Multi-infarct +/- Alzheimer's) Toxic-Metabolic Encephalopathy (continues with signs of infection) ? Possible Adverse drug reaction-Rash most likely due to amoxicillin. Severe Diabetic peripheral neuropathy (Diabetic). SUGGEST: Check Rectal Temp, R/O occult infection Advance diet from chopped and encourage hydration ID consult appreciated. Consider rash and drug rxn from amoxicillin Continue ASA, Xarelto and Statin for secondary stroke prevention Mobilize OO bed to chair and PT for gait with walker. In patient Rehabilitation will be indicated when Pt is stable. Thank you very much, Kush Lafleur MD
[2018-07-17] MEDS: RIVAROXABAN 20 MG TABLET PO SCH (17:41)
[2018-07-17] MEDS: ATORVASTATIN CA 20 MG TABLET (FP) PO SCH (21:12)
[2018-07-17] MEDS: DONEPEZIL HCL 5 MG TABLET (FP) PO SCH (21:13)
[2018-07-18] MEDS ORDERED: PT OWN MED DRAWER 7, Y5N ONE (06:26)
[2018-07-18] MEDS: INSULIN SLIDING SCALE (NOVOLOG) 1 VIAL SQ SCH (06:43)
[2018-07-18 07:31] LABS: HEMATOCRIT 36.4 % (35.4-49); HEMOGLOBIN 12.6 GM/dL (11.7-16.9); MCH 31.6 pg (25.7-33.7); MCHC 34.7 g/dl (32.0-35.9); MEAN CELL VOLUME 91.2 fl (80-96); MEAN PLT VOLUME 7.9 fl (7.5-11.1); PLATELET COUNT 312 K/MM3 (134-434); RBC 3.99 M/mm3 (4.00-5.60); RDW 13.2 % (11.9-15.9); WHITE BLOOD COUNT 7.7 K/mm3 (4.0-10.0)
[2018-07-18 08:25] LABS: ALBUMIN 2.9 g/dl (3.4-5.0); ALK PHOS 87 U/L (45-117); ANION GAP 11 MMOL/L (8-16); BILIRUBIN,TOTAL 0.5 mg/dL (0.2-1); BLOOD UREA NITROGEN 31 mg/dL (7-18); CALCIUM 8.8 mg/dL (8.5-10.1); CHLORIDE 100 mmol/L (98-107); CO2 24 mmol/L (21-32); CREATININE 1.3 mg/dL (0.55-1.3); GLUCOSE,RANDOM 107 mg/dL (74-106); POTASSIUM 4.2 mmol/L (3.5-5.1); SGOT/AST 19 U/L (15-37); SGPT/ALT 20 U/L (13-61); SODIUM 135 mmol/L (136-145); TOT PROT 5.1 g/dl (6.4-8.2)
[2018-07-18] MEDS: DOCUSATE SODIUM 100 MG CAPSULE (FP) PO SCH (09:36)
[2018-07-18] MEDS: CYANOCOBALAMIN 1,000 MCG TABLET (FP) PO SCH (09:36)
[2018-07-18] MEDS: metoPROLOL SUCCINATE 25 MG TAB.SR.24H (FP) PO SCH (09:36)
[2018-07-18] MEDS: AMINO ACIDS/PROTEIN HYDROLYS 30 ML LIQUID.PKT PO SCH (09:36)
[2018-07-18] MEDS: AMOX TR/POT CLAV 875MG/125MG TABLETS (FP) PO SCH (09:37)
--- NOTE | 2018-07-18 10:34 | DS ---
Physical Examination Vital Signs: Vital Signs Temperature 98.1 F 07/18/18 06:00 Pulse Rate 69 07/18/18 06:00 Respiratory Rate 18 07/18/18 06:00 Blood Pressure 128/76 07/18/18 06:00 O2 Sat by Pulse Oximetry (%) 95 07/16/18 20:08 Findings/Remarks: Patient is a 83 y/o male with past medical history DM, HLD, afib, HTN, PE. Patient was admitted to [facility] for fever and AMS 2/2 to UTI. WBC is currenty wnl and afebrile. Evaluated by Neuroology while inpatient and recommendations appreciated. Completed IV course of antibiotic therapy and will be discharged home with oral antibiotics as per ID recommendations. Constitutional: Yes: Well Nourished, No Distress, Calm Cardiovascular: Yes: Regular Rate and Rhythm Respiratory: Yes: Regular Gastrointestinal: Yes: Normal Bowel Sounds, Soft Musculoskeletal: Yes: Muscle Weakness Extremities: Yes: WNL Edema: No Peripheral Pulses WNL: Yes Neurological: Yes: Alert, Pre-Existing Deficit Psychiatric: Yes: Alert Labs: CBC, BMP 07/18/18 05:30 07/18/18 05:30 Discharge Summary Reason For Visit: SEPSIS Current Active Problems SHELBI (acute kidney injury) (Acute) Altered mental status (Acute) Brain ischemia (Acute) Diabetes (Acute) History of CVA (cerebrovascular accident) (Acute) Recurrent falls (Acute) Sepsis (Acute) Sepsis due to urinary tract infection (Acute) Toxic metabolic encephalopathy (Acute) Hospital Course: Laboratory Last Values WBC 7.7 K/mm3 (4.0-10.0) 07/18/18 05:30 RBC 3.99 M/mm3 (4.00-5.60) L 07/18/18 05:30 Hgb 12.6 GM/dL (11.7-16.9) 07/18/18 05:30 Hct 36.4 % (35.4-49) 07/18/18 05:30 MCV 91.2 fl (80-96) 07/18/18 05:30 MCH 31.6 pg (25.7-33.7) 07/18/18 05:30 MCHC 34.7 g/dl (32.0-35.9) 07/18/18 05:30 RDW 13.2 % (11.9-15.9) 07/18/18 05:30 Plt Count 312 K/MM3 (134-434) 07/18/18 05:30 MPV 7.9 fl (7.5-11.1) 07/18/18 05:30 Absolute Neuts (auto) 7.4 K/mm3 (1.5-8.0) 07/16/18 17:00 Neutrophils % 67.9 % (42.8-82.8) 07/16/18 17:00 Lymphocytes % 14.1 % (8-40) D 07/16/18 17:00 Monocytes % 11.9 % (3.8-10.2) H 07/16/18 17:00 Eosinophils % 4.8 % (0-4.5) H 07/16/18 17:00 Basophils % 1.3 % (0-2.0) 07/16/18 17:00 Nucleated RBC % 0 % (0-0) 07/16/18 17:00 ESR 48 mm/hr (0-20) H 07/10/18 05:50 PT with INR 16.60 SEC (9.7-13.0) H 07/09/18 08:03 INR 1.40 (0.83-1.09) H 07/09/18 08:03 PTT (Actin FS) 29.6 SECONDS (25.2-36.5) 07/09/18 08:03 VBG pH 7.38 (7.32-7.42) 07/09/18 00:09 POC VBG pCO2 34.9 mmHg (38-52) L 07/09/18 00:09 POC VBG pO2 51.5 mmHg (28-48) H 07/09/18 00:09 Mixed VBG HCO3 20.3 meq/L (19-25) 07/09/18 00:09 Sodium 135 mmol/L (136-145) L 07/18/18 05:30 Potassium 4.2 mmol/L (3.5-5.1) 07/18/18 05:30 Chloride 100 mmol/L (98-107) 07/18/18 05:30 Carbon Dioxide 24 mmol/L (21-32) 07/18/18 05:30 Anion Gap 11 MMOL/L (8-16) 07/18/18 05:30 BUN 31 mg/dL (7-18) H 07/18/18 05:30 Creatinine 1.3 mg/dL (0.55-1.3) 07/18/18 05:30 Creat Clearance w eGFR 52.85 (>60) 07/18/18 05:30 POC Glucometer 116 UNITS (80-120) 07/18/18 06:39 Random Glucose 107 mg/dL (74-106) H 07/18/18 05:30 Hemoglobin A1c % 6.9 % (4.2-6.3) H 07/09/18 10:20 Lactic Acid 1.0 mmol/L (0.4-2.0) 07/08/18 23:00 Calcium 8.8 mg/dL (8.5-10.1) 07/18/18 05:30 Phosphorus 3.8 mg/dL (2.5-4.9) 07/12/18 06:00 Magnesium 1.9 mg/dL (1.8-2.4) 07/12/18 06:00 Total Bilirubin 0.5 mg/dL (0.2-1) 07/18/18 05:30 AST 19 U/L (15-37) 07/18/18 05:30 ALT 20 U/L (13-61) 07/18/18 05:30 Alkaline Phosphatase 87 U/L (45-117) 07/18/18 05:30 Troponin I < 0.02 ng/ml (0.00-0.05) 07/08/18 23:00 Total Protein 5.1 g/dl (6.4-8.2) L 07/18/18 05:30 Albumin 2.9 g/dl (3.4-5.0) L 07/18/18 05:30 Triglycerides 176 mg/dL (0-150) H 07/15/18 09:45 Cholesterol 138 mg/dL (50-200) 07/15/18 09:45 Total LDL Cholesterol 84 mg/dL (5-100) 07/15/18 09:45 HDL Cholesterol 26 mg/dL (40-60) L 07/15/18 09:45 Vitamin B12 480 pg/ml (193-986) 07/09/18 10:20 TSH 0.96 uIU/ml (0.358-3.74) 07/09/18 10:20 Free T4 0.92 ng/dl (0.76-1.16) 07/09/18 10:20 Urine Color Yellow 07/09/18 01:00 Urine Appearance Slcloudy 07/09/18 01:00 Urine pH 5.0 (5.0-8.0) 07/09/18 01:00 Ur Specific [place] 1.018 (1.010-1.035) 07/09/18 01:00 Urine Protein 2+ (NEGATIVE) H 07/09/18 01:00 Urine Glucose (UA) Negative (NEGATIVE) 07/09/18 01:00 Urine Ketones 1+ (NEGATIVE) H 07/09/18 01:00 Urine Blood 3+ (NEGATIVE) H 07/09/18 01:00 Urine Nitrite Negative (NEGATIVE) 07/09/18 01:00 Urine Bilirubin Negative (<2.0 mg/dL) 07/09/18 01:00 Urine Urobilinogen Negative mg/dL (0.2-1.0) 07/09/18 01:00 Ur Leukocyte Esterase Negative (NEGATIVE) 07/09/18 01:00 Urine WBC (Auto) None /hpf (3-5) 07/09/18 01:00 Urine RBC (Auto) 664 /hpf (0-3) 07/09/18 01:00 Ur Epithelial Cells Rare /HPF (FEW) 07/09/18 01:00 Urine Mucus Rare 07/09/18 01:00 RPR Titer Nonreactive (NONREACTIVE) 07/11/18 06:30 Influenza A (Rapid) Negative 07/08/18 23:00 Influenza B (Rapid) Negative 07/08/18 23:00 Microbiology 07/08/18 23:00 Blood - Peripheral Venous Blood Culture - Final NO GROWTH AFTER 5 DAYS INCUBATION 07/08/18 23:00 Blood - Peripheral Venous Blood Culture - Final NO GROWTH AFTER 5 DAYS INCUBATION 07/09/18 01:00 Urine - Urine - Catheterized Urine Culture - Final Enterococcus Faecalis 07/09/18 23:00 Urine For Antigen Detection Legionella Antigen - Final 07/09/18 23:00 Urine For Antigen Detection Streptococcus pneumoniae Antigen (M - Final Vital Signs Temp 98.1 F 07/18/18 06:00 Pulse 69 07/18/18 06:00 Resp 18 07/18/18 06:00 BP 128/76 07/18/18 06:00 Pulse Ox 95 07/16/18 20:08 Intake & Output 07/17/18 07/17/18 07/18/18 11:59 23:59 11:59 Intake Total 120 500 Balance 120 500 Weight 95.254 kg Intake: Oral 120 500 Other: Voiding Method Incontinent Incontinent Incontinent # Unmeasured Voids Patel 2 Straight Cath 2 Bowel Movement Yes No Height 5 ft 8 in Body Mass Index (BMI) 31.9 Condition: Stable - Instructions Diet, Activity, Other Instructions: Patient to follow up with PMD Patient to follow up with Neurology Dr Lafleur Will start Augmentin 875mg twice a day x 3 more days return to ER if AMS, fever, chest pain, SOB Referrals: Kush Lafleur MD [Staff Physician] - Stefani Dunne MD [Primary Care Provider] - Disposition: [facility] - Home Medications Comprehensive Discharge Medication List: Ambulatory Orders Aspirin [ASA -] 81 mg PO DAILY 07/09/18 Atorvastatin Ca [Lipitor] 20 mg PO HS 07/09/18 Cyanocobalamin (Vitamin B-12) [Vitamin B-12] 1,000 mcg PO DAILY 07/09/18 Docusate Sodium [Colace] 100 mg PO DAILY 07/09/18 Ferrous Sulfate [Iron] 325 mg PO DAILY 07/09/18 Guaifenesin [Robitussin -] 100 mg PO Q4H PRN 07/09/18 Losartan Potassium [Cozaar -] 50 mg PO DAILY 07/09/18 Metformin HCl [Metformin HCl ER] 500 mg PO DAILY 07/09/18 Metoprolol Succinate [Toprol Xl] 25 mg PO DAILY 07/09/18 Rivaroxaban [Xarelto -] 20 mg PO DAILY 07/09/18
[2018-07-18 11:54] VITALS: BP 134/77; PULSE 78; TEMP 98.6
== END 2018-07-18 12:05 | DRG 871 ==
LOC: JER 21:48 → JERBED 07-09 02:16 → J8W 07-09 07:13
PROVIDERS: ADMIT Internal Medicine; ATTEND Family Medicine
DX: A41.9 Sepsis, unspecified organism (principal); G92 Toxic encephalopathy; N17.9 Acute kidney failure, unspecified; N39.0 Urinary tract infection, site not specified; I67.82 Cerebral ischemia; E78.5 Hyperlipidemia, unspecified; F03.90 Unspecified dementia, unspecified severity, without behavioral disturbance, psychotic disturbance, mood disturbance, and anxiety; D64.9 Anemia, unspecified; I48.91 Unspecified atrial fibrillation; Z79.01 Long term (current) use of anticoagulants; Z86.711 Personal history of pulmonary embolism; R29.6 Repeated falls; Z79.84 Long term (current) use of oral hypoglycemic drugs; E11.40 Type 2 diabetes mellitus with diabetic neuropathy, unspecified; M54.17 Radiculopathy, lumbosacral region; E11.42 Type 2 diabetes mellitus with diabetic polyneuropathy; Z86.73 Personal history of transient ischemic attack (TIA), and cerebral infarction without residual deficits; L27.0 Generalized skin eruption due to drugs and medicaments taken internally; T36.0X5A Adverse effect of penicillins, initial encounter; B35.1 Tinea unguium; I12.9 Hypertensive chronic kidney disease with stage 1 through stage 4 chronic kidney disease, or unspecified chronic kidney disease; N18.9 Chronic kidney disease, unspecified; E11.22 Type 2 diabetes mellitus with diabetic chronic kidney disease
CPT/HCPCS: 36415; 70450-TC; 70551-TC; 71045-TC-FY; 71250-TC; 76775-TC; 80048; 80053; 80061; 81003; 81015; 82607; 82803; 82962; 83036; 83605; 83721; 83735; 84100; 84439; 84443; 84484; 85025; 85027; 85610; 85651; 85730; 86593; 87040; 87086; 87186; 87804; 87899; 93005; 93010; 93880-TC; 97116-GP; 97161-GP; 99283-25; J0131; J7030

== ENCOUNTER 2018-10-01 19:17 | Emergency (ER) | payer OTHER, MEDICARE ==
[2018-10-01] MEDS ORDERED: LIDOCAINE HCL 2% (20ML MULTI-DOSE VIAL) NR ONE (19:40)
[2018-10-01 20:05] VITALS: BP 146/80; PULSE 80; TEMP 97.7; BMI 28.3
[2018-10-01] MEDS ORDERED: CEPHALEXIN MONOHYDRATE 500 MG CAPSULE (UD) PO ONE (20:41)
[2018-10-01] MEDS ORDERED: CEPHALEXIN MONOHYDRATE 500 MG CAPSULE (UD) ONE (20:43)
--- NOTE | 2018-10-02 05:11 | PDOC ---
Documentation entered by Mauri Cordon SCRIBE, acting as scribe for Michael Angulo MD. Michael Angulo MD: This documentation has been prepared by the Bravo hussein Aiswarya, SCRIBE, under my direction and personally reviewed by me in its entirety. I confirm that the documentation accurately reflects all work, treatment, procedures, and medical decision making performed by me. History of Present Illness - General Chief Complaint: Abscess Boil Stated Complaint: ABSCESS/RASH Time Seen by Provider: 10/01/18 19:37 History Source: Patient Exam Limitations: No Limitations - History of Present Illness Initial Comments: 10/01/18 21:01 The patient is a 83 year old male, with a significant PMH of anemia, AFIB, dementia, diabetes, and HTN, who presents to the emergency department with right arm abscess that began 2 days ago. The patient states boil is located to dorsum forearm accompanied with erythema and pruritus to the area. Denies any outdoor activity. The patient denies chest pain, shortness of breath, headache and dizziness.Denies fever, chills, nausea, vomit, diarrhea and constipation. Denies dysuria, frequency, urgency and hematuria. Allergies: None reported Past surgical history: None reported Social history: None reported PCP: None reported Past History - Past Medical History Allergies/Adverse Reactions: Allergies Allergy/AdvReac Type Severity Reaction Status Date / Time No Known Allergies Allergy Verified 10/01/18 19:43 Home Medications: Ambulatory Orders Aspirin [ASA -] 81 mg PO DAILY 07/09/18 Atorvastatin Ca [Lipitor] 20 mg PO HS 07/09/18 Cyanocobalamin (Vitamin B-12) [Vitamin B-12] 1,000 mcg PO DAILY 07/09/18 Metformin HCl [Metformin HCl ER] 500 mg PO DAILY 07/09/18 Apixaban [Eliquis] 2.5 mg PO BID 10/01/18 Cholecalciferol (Vitamin D3) [Vitamin D3 -] 1,000 unit PO DAILY 10/01/18 Donepezil HCl [Aricept] 5 mg PO BID 10/01/18 Hydroxyzine HCl 25 mg PO HS 10/01/18 Losartan Potassium [Cozaar] 25 mg PO DAILY 10/01/18 Sulfamethoxazole/Trimethoprim [Bactrim Ds -] 1 tab PO BID #20 tablet 10/01/18 Anemia: Yes Cardiac Disorders: Yes (Afib) COPD: No Dementia: Yes Diabetes: Yes HTN: Yes - Suicide/Smoking/Psychosocial Hx Smoking History: Unknown if ever smoked Hx Alcohol Use: No Drug/Substance Use Hx: No Substance Use Type: None Review of Systems - Review of Systems Able to Perform ROS?: Yes Comments:: 10/01/18 21:02 GENERAL/CONSTITUTIONAL: No fever or chills. No weakness. GENITOURINARY: No dysuria, frequency, or change in urination. MUSCULOSKELETAL: No joint or muscle swelling or pain. No neck or back pain. SKIN: +right arm abscess NEUROLOGIC: No headache, vertigo, loss of consciousness, or change in strength/ sensation. ENDOCRINE: No increased thirst. No abnormal weight change. HEMATOLOGIC/LYMPHATIC: No anemia, easy bleeding, or history of blood clots. ALLERGIC/IMMUNOLOGIC: No hives or skin allergy. *Physical Exam - Vital Signs Last Vital Signs Temp Pulse Resp BP Pulse Ox 97.7 F 80 18 146/80 96 10/01/18 19:18 10/01/18 19:18 10/01/18 19:18 10/01/18 19:18 10/01/18 19:18 - Physical Exam Comments: 10/01/18 21:02 GENERAL: Awake, alert, and fully oriented, in no acute distress HEAD: No signs of trauma LUNGS: Breath sounds equal, clear to auscultation bilaterally. No wheezes, and no crackles HEART: Regular rate and rhythm, normal S1 and S2, no murmurs, rubs or gallops ABDOMEN: Soft, nontender, normoactive bowel sounds. No guarding, no rebound. No masses EXTREMITIES: Normal range of motion, no edema. No clubbing or cyanosis. No cords, erythema, or tenderness NEUROLOGICAL: Cranial nerves II through XII grossly intact. Normal speech. SKIN: +4 cm abscess to the dorsum forearm with surround erythema. Procedures - Incision and Drainage I&D Site: Right: Arm Betadine cleansed: Yes Anesthesia: 2% Lidocaine Volume(ml): 3 Blade Size: 10 Attempts: 1 Iodinated Packin/2 in Plain Packing: No Complications: none Dressing: Yes ED Treatment Course - Medications Given in the ED: ED Medications Discontinued Medications Generic Name Dose Route Start Last Admin Trade Name Freq PRN Reason Stop Dose Admin Cephalexin HCl 500 mg 10/01/18 20:41 10/01/18 20:45 Keflex - PO 10/01/18 20:42 500 mg ONCE ONE Administration Medical Decision Making - Medical Decision Making 10/02/18 05:11 abscess I+Dd abx has derm fu in 2 days *DC/Admit/Observation/Transfer Diagnosis at time of Disposition: Abscess - Discharge Dispostion Disposition: HOME Condition at time of disposition: Good - Prescriptions Prescriptions: Sulfamethoxazole/Trimethoprim [Bactrim Ds -] 1 tab PO BID #20 tablet - Referrals Referrals: Kiarra Plasencia MD [Non Staff, Medical] - Álvaro High [Primary Care Provider] - - Patient Instructions Printed Discharge Instructions: DI for Incision and Drainage of a Skin Abscess Additional Instructions: Please remove packing in 24-48 hours (Tuesday through Tuesday evening) - Post Discharge Activity
== END 2018-10-01 21:14 | disposition home or self-care (01) ==
LOC: SUPCPDRO 19:17 → FER 19:17
PROC: 0H9BXZZ Drainage of Right Upper Arm Skin, External Approach (ICD-10-PCS; principal; 2018-10-01)
DX: L02.413 Cutaneous abscess of right upper limb (principal); I48.91 Unspecified atrial fibrillation; F03.90 Unspecified dementia, unspecified severity, without behavioral disturbance, psychotic disturbance, mood disturbance, and anxiety; E11.9 Type 2 diabetes mellitus without complications; I10 Essential (primary) hypertension; Z79.84 Long term (current) use of oral hypoglycemic drugs
CPT/HCPCS: 99282-25